=== PATIENT | male | born 1975 | race Caucasian/White ===

== ENCOUNTER 2017-08-13 21:37 | Emergency (ER) | payer OTHER, SELFPAY ==
--- NOTE | 2017-08-13 21:42 | ED.UPPEXIN ---
HPI - Extremity Injury (Upper) <SIDDHARTH Stahl - Last Filed: 08/13/17 22:15> General Chief Complaint: Wound/Laceration Stated Complaint: LEFT THUMB CUT Time Seen by Provider: 08/13/17 21:41 History of Present Illness HPI narrative: 42-year-old healthy male here for complaint of laceration to his left thumb. He was using a utility knife earlier this evening because only in [place] when he accidentally slipped hitting the dorsal aspect of the left thumb over the MCP joint. He denies any other injuries. He states that his tetanus is up-to-date. No other concerns or complaints Related Data Previous Rx's Medication Instructions Recorded diazepam [Valium] 5 mg PO Q12HP PRN #10 tab 07/23/16 hydrocodone-acetaminophen [Evans] 1 tab PO Q6HP PRN #10 tab 07/23/16 Allergies Allergy/AdvReac Type Severity Reaction Status Date / Time No Known Drug Allergies Allergy Verified 08/13/17 21:52 Review of Systems <SIDDHARTH Stahl - Last Filed: 08/13/17 22:15> Constitutional Denies chills, Denies fever(s), Denies lethargy and Denies weakness Eyes Denies change in vision, Denies eye discharge, Denies irritation and Denies loss of vision ENT Ears, Nose, Mouth, and Throat: Denies change in voice, Denies neck pain and Denies sore throat Cardiovascular Denies chest pain, Denies irregular heart rhythm, Denies lightheadedness, Denies palpitations, Denies dyspnea, Denies dyspnea on exertion and Denies orthopnea Respiratory Denies cough, Denies dyspnea, Denies dyspnea on exertion and Denies wheezing Gastrointestinal Gastrointestinal: Denies abdominal pain, Denies change in bowel habits, Denies diarrhea, Denies nausea and Denies vomiting Genitourinary Denies hematuria, Denies flank pain, Denies urinary incontinence and Denies urinary urgency Musculoskeletal Denies neck pain Comments: Laceration left thumb Integumentary/Breasts Denies pruritus, Denies erythema, Denies rash and Denies wounds Neurologic Denies loss of vision and Denies weakness Endocrine Denies palpitations Hematologic/Lymphatic Denies easy bruising Allergic/Immunologic Denies wheezing Exam <SIDDHARTH Stahl Last Filed: 06/14/18 22:15> Initial Vital Signs Initial Vital Signs: Vital Signs Temperature 98.6 F 08/13/17 21:46 Pulse Rate 84 08/13/17 21:46 Respiratory Rate 15 08/13/17 21:46 Blood Pressure 130/71 H 08/13/17 21:46 Pulse Oximetry 98 08/13/17 21:46 Const General: cooperative and well developed Nutritional Appearance: well nourished Orientation: alert, awake, oriented x3 and not confused [facility] Mouth: oral mucosae normal and moist mucous membranes Eyes Conjunctivae: conjunctivae normal Sclera: sclerae normal Pupils: PERRL EOM: EOM intact bilaterally Neck Neck: normal visual inspection, trachea midline, No lymphadenopathy, No midline deformity and No JVD Lymphatic: No lymphedema Chest Chest: normal inspection of the chest Resp Effort & Inspection: normal respiratory effort, able to speak in complete sentences, no respiratory distress and no use of accessory muscles Auscultation: clear to auscultation bilaterally, no rales, no rhonchi and no wheezes Cardio Rate: regular rate Rhythm: regular rhythm Heart Sounds: no click, no gallops, no murmurs and no rubs Skin General: no rashes or lesions noted, No jaundice and No petechiae Extrem Other: 1 cm laceration to the dorsal aspect of the left thumb over the MCP joint. Distal sensation is intact. Full range of motion. Distal cap refill less than 2 sec. <Markus Montejo MD - Last Filed: 08/14/17 02:24> Initial Vital Signs Initial Vital Signs: Vital Signs Temperature 98.6 F 08/13/17 21:46 Pulse Rate 84 08/13/17 21:46 Respiratory Rate 15 08/13/17 21:46 Blood Pressure 130/71 H 08/13/17 21:46 Pulse Oximetry 98 08/13/17 21:46 Procedures <SIDDHARTH Stahl - Last Filed: 08/13/17 22:15> Laceration Repair Laceration 1: Site: other (thumb) Side (If applicable): left Size (cm): 1 Description: linear Depth: simple, single layer Local Anesthetic: lidocaine 1% Amount of anesthesia used (mL): 1.5 Pre-repair: wound explored Skin layer closed with: nylon Size (cm): 5-0 Number of sutures: 2 Technique: simple, interrupted Course <SIDDHARTH Stahl - Last Filed: 08/13/17 22:15> Vital Signs - 8 hr 08/13/17 21:46 Temperature 98.6 F Pulse Rate 84 Respiratory Rate 15 Blood Pressure 130/71 H Pulse Oximetry 98 <Markus Montejo MD - Last Filed: 08/14/17 02:24> Vital Signs - 8 hr 08/13/17 21:46 Temperature 98.6 F Pulse Rate 84 Respiratory Rate 15 Blood Pressure 130/71 H Pulse Oximetry 98 MDM - Extremity Injury (Upper) <SIDDHARTH Stahl - Last Filed: 08/13/17 22:15> MDM Narrative Medical decision making narrative: Laceration to left thumb was closed with 2 sutures. Sutures to be removed in 7-10 days. Wound dressed with bacitracin and a dressing. Keep wound dressing on clean and dry for 24-36 hr. After this timeframe a shower briefly. Dry wound and redressed with bacitracin and a dressing. Dress wound daily with bacitracin and a dressing. [id number] Tylenol or Motrin as needed for any discomfort. For any worsening symptoms return to the emergency room. Discharge Plan Departure Patient Disposition: Home, Self-Care Clinical Impression: Laceration of left thumb Discharge Date/Time: 08/13/17 22:14 Interventions: ED Discharge Assessment Last Done: 08/13/17 22:12 Instructions: DI for Laceration Repair Activity Restrictions/Additional Instructions: Laceration to left thumb was closed with 2 sutures. Sutures to be removed in 7-10 days. Wound dressed with bacitracin and a dressing. Keep wound dressing on clean and dry for 24-36 hr. After this timeframe a shower briefly. Dry wound and redressed with bacitracin and a dressing. Dress wound daily with bacitracin and a dressing. [id number] Tylenol or Motrin as needed for any discomfort. For any worsening symptoms return to the emergency room. Prescriptions: No Action hydrocodone-acetaminophen [Evans] 5 MG/325 MG tablet 1 tab PO Q6HP PRNQty: 10 RF: 0 diazepam [Valium] 5 MG tablet 5 mg PO Q12HP PRNQty: 10 RF: 0 Referrals: [facility] [Provider Group] <Markus Montejo MD - Last Filed: 08/14/17 02:24> Cosign ED Attending Cosdimitriature Attestation: I was immediately available in the department for consultation. Documentation has been reviewed. I agree with assessment and plan.
[2017-08-13 21:46] VITALS: BP 130/71; PULSE 84; RESP 15; TEMP 37; O2SAT 98; BMI 29.9
--- NOTE | 2017-08-13 22:07 | ED_ITS ---
HPI - Extremity Injury (Upper) <SIDDHARTH Stahl - Last Filed: 08/13/17 22:15> General Chief Complaint: Wound/Laceration Stated Complaint: LEFT THUMB CUT Time Seen by Provider: 08/13/17 21:41 History of Present Illness HPI narrative: 42-year-old healthy male here for complaint of laceration to his left thumb. He was using a utility knife earlier this evening because only in [place] when he accidentally slipped hitting the dorsal aspect of the left thumb over the MCP joint. He denies any other injuries. He states that his tetanus is up-to-date. No other concerns or complaints Related Data Previous Rx's Medication Instructions Recorded diazepam [Valium] 5 mg PO Q12HP PRN #10 tab 07/23/16 hydrocodone-acetaminophen [Wheaton] 1 tab PO Q6HP PRN #10 tab 07/23/16 Allergies Allergy/AdvReac Type Severity Reaction Status Date / Time No Known Drug Allergies Allergy Verified 08/13/17 21:52 Review of Systems <SIDDHARTH Stahl - Last Filed: 08/13/17 22:15> Constitutional Denies chills, Denies fever(s), Denies lethargy and Denies weakness Eyes Denies change in vision, Denies eye discharge, Denies irritation and Denies loss of vision ENT Ears, Nose, Mouth, and Throat: Denies change in voice, Denies neck pain and Denies sore throat Cardiovascular Denies chest pain, Denies irregular heart rhythm, Denies lightheadedness, Denies palpitations, Denies dyspnea, Denies dyspnea on exertion and Denies orthopnea Respiratory Denies cough, Denies dyspnea, Denies dyspnea on exertion and Denies wheezing Gastrointestinal Gastrointestinal: Denies abdominal pain, Denies change in bowel habits, Denies diarrhea, Denies nausea and Denies vomiting Genitourinary Denies hematuria, Denies flank pain, Denies urinary incontinence and Denies urinary urgency Musculoskeletal Denies neck pain Comments: Laceration left thumb Integumentary/Breasts Denies pruritus, Denies erythema, Denies rash and Denies wounds Neurologic Denies loss of vision and Denies weakness Endocrine Denies palpitations Hematologic/Lymphatic Denies easy bruising Allergic/Immunologic Denies wheezing Exam <SIDDHARTH Stahl Last Filed: 06/14/18 22:15> Initial Vital Signs Initial Vital Signs: Vital Signs Temperature 98.6 F 08/13/17 21:46 Pulse Rate 84 08/13/17 21:46 Respiratory Rate 15 08/13/17 21:46 Blood Pressure 130/71 H 08/13/17 21:46 Pulse Oximetry 98 08/13/17 21:46 Const General: cooperative and well developed Nutritional Appearance: well nourished Orientation: alert, awake, oriented x3 and not confused [facility] Mouth: oral mucosae normal and moist mucous membranes Eyes Conjunctivae: conjunctivae normal Sclera: sclerae normal Pupils: PERRL EOM: EOM intact bilaterally Neck Neck: normal visual inspection, trachea midline, No lymphadenopathy, No midline deformity and No JVD Lymphatic: No lymphedema Chest Chest: normal inspection of the chest Resp Effort & Inspection: normal respiratory effort, able to speak in complete sentences, no respiratory distress and no use of accessory muscles Auscultation: clear to auscultation bilaterally, no rales, no rhonchi and no wheezes Cardio Rate: regular rate Rhythm: regular rhythm Heart Sounds: no click, no gallops, no murmurs and no rubs Skin General: no rashes or lesions noted, No jaundice and No petechiae Extrem Other: 1 cm laceration to the dorsal aspect of the left thumb over the MCP joint. Distal sensation is intact. Full range of motion. Distal cap refill less than 2 sec. <Markus Montejo MD - Last Filed: 08/14/17 02:24> Initial Vital Signs Initial Vital Signs: Vital Signs Temperature 98.6 F 08/13/17 21:46 Pulse Rate 84 08/13/17 21:46 Respiratory Rate 15 08/13/17 21:46 Blood Pressure 130/71 H 08/13/17 21:46 Pulse Oximetry 98 08/13/17 21:46 Procedures <SIDDHARTH Stahl - Last Filed: 08/13/17 22:15> Laceration Repair Laceration 1: Site: other (thumb) Side (If applicable): left Size (cm): 1 Description: linear Depth: simple, single layer Local Anesthetic: lidocaine 1% Amount of anesthesia used (mL): 1.5 Pre-repair: wound explored Skin layer closed with: nylon Size (cm): 5-0 Number of sutures: 2 Technique: simple, interrupted Course <SIDDHARTH Stahl - Last Filed: 08/13/17 22:15> Vital Signs - 8 hr 08/13/17 21:46 Temperature 98.6 F Pulse Rate 84 Respiratory Rate 15 Blood Pressure 130/71 H Pulse Oximetry 98 <Markus Montejo MD - Last Filed: 08/14/17 02:24> Vital Signs - 8 hr 08/13/17 21:46 Temperature 98.6 F Pulse Rate 84 Respiratory Rate 15 Blood Pressure 130/71 H Pulse Oximetry 98 MDM - Extremity Injury (Upper) <SIDDHARTH Stahl - Last Filed: 08/13/17 22:15> MDM Narrative Medical decision making narrative: Laceration to left thumb was closed with 2 sutures. Sutures to be removed in 7-10 days. Wound dressed with bacitracin and a dressing. Keep wound dressing on clean and dry for 24-36 hr. After this timeframe a shower briefly. Dry wound and redressed with bacitracin and a dressing. Dress wound daily with bacitracin and a dressing. [id number] Tylenol or Motrin as needed for any discomfort. For any worsening symptoms return to the emergency room. Discharge Plan Departure Patient Disposition: Home, Self-Care Clinical Impression: Laceration of left thumb Discharge Date/Time: 08/13/17 22:14 Interventions: ED Discharge Assessment Last Done: 08/13/17 22:12 Instructions: DI for Laceration Repair Activity Restrictions/Additional Instructions: Laceration to left thumb was closed with 2 sutures. Sutures to be removed in 7- 10 days. Wound dressed with bacitracin and a dressing. Keep wound dressing on clean and dry for 24-36 hr. After this timeframe a shower briefly. Dry wound and redressed with bacitracin and a dressing. Dress wound daily with bacitracin and a dressing. [id number] Tylenol or Motrin as needed for any discomfort. For any worsening symptoms return to the emergency room. Prescriptions: No Action hydrocodone-acetaminophen [Wheaton] 5 MG/325 MG tablet 1 tab PO Q6HP PRNQty: 10 RF: 0 diazepam [Valium] 5 MG tablet 5 mg PO Q12HP PRNQty: 10 RF: 0 Referrals: [facility] [Provider Group] <Markus Montejo MD - Last Filed: 08/14/17 02:24> Cosign ED Attending Cosdimitriature Attestation: I was immediately available in the department for consultation. Documentation has been reviewed. I agree with assessment and plan.
== END 2017-08-13 22:14 | disposition home or self-care (01) ==
PROVIDERS: Emergency Provider Nurse Practitioner Family
DX: S61.012A Laceration without foreign body of left thumb without damage to nail, initial encounter (principal); W26.0XXA Contact with knife, initial encounter
CPT/HCPCS: 12001; 99282; 99283

== ENCOUNTER → 2017-12-03 09:42 | Outpatient (CLI) | payer OTHER, SELFPAY ==
--- NOTE | 2017-12-03 | DI.RAD.S_ITS ---
PROCEDURE: XR KNEE RT 3V INDICATIONS: KNEE PAIN TECHNIQUE: 3 views of the knee were acquired. COMPARISON: None. FINDINGS: Bones: No fractures or dislocations. No suspicious bony lesions. No definite joint space narrowing. Anterior soft tissue swelling. Trace joint effusion is seen. There is a chronic-appearing fragment measuring 3 mm adjacent to the tibial tuberosity. IMPRESSION: No definite acute fracture. 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 Please correlate clinically. Trace joint effusion. Dictated by: Jeff King M.D. on 12/03/2017 at 11:46 Approved by: Jeff King M.D. on 12/03/2017 at 11:48
== END ==
PROVIDERS: Visit Provider Internal Medicine
DX: M25.561 Pain in right knee (principal); M79.89 Other specified soft tissue disorders
CPT/HCPCS: 73562

== ENCOUNTER → 2018-09-20 14:38 | Outpatient (CLI) | payer OTHER, SELFPAY ==
--- NOTE | 2018-09-20 | DI.MRI.S_ITS ---
PROCEDURE: MR KNEE RT WO CON INDICATIONS: Patellar tendinitis, right knee TECHNIQUE: Noncontrast sagittal PD fast spin echo and T2 fast spin echo with fat saturation, sagittal 3-D FLASH with fat saturation; coronal T1 spin echo and PD fast spin echo with fat saturation, and axial PD fast spin echo with fat saturation through the knee. COMPARISON: None. FINDINGS: Image quality: Excellent. Menisci: The medial and lateral menisci demonstrate normal morphology and internal signal. The meniscal root ligaments appear intact. Cruciate ligaments: The anterior and posterior cruciate ligaments appear intact. Medial structures: The medial collateral ligament appears intact. The posterior oblique ligament, semimembranosus tendon insertions, oblique popliteal ligament, and meniscocapsular junction appear intact. Visualized portions of the pes anserinus tendons appear normal. No abnormal bursal fluid. Lateral structures: The lateral collateral ligament, long and short heads of the biceps femoris tendon appear intact. The popliteus tendon appears normal; the popliteofibular ligament appears intact. The posterosuperior and anteroinferior popliteomeniscal fascicles appear intact. The arcuate and fabellofibular ligaments appear intact, on either side of the lateral inferior geniculate artery. Iliotibial band appears normal. Anterior structures: The quadriceps tendon appears intact. Markedly thickened patellar tendon with heterogeneous T2 hyperintense signal in distal patella tendon near its insertion on tibia tuberosity is seen consistent with tendinosis and moderate grade partial-thickness tear involving patella tendon. Patellar alignment is normal. No femoral trochlear dysplasia or ventral trochlear prominence. No edema in the infrapatellar fat pad. Bones and cartilage: No bone marrow contusions or fractures. The cartilage of the medial and lateral femorotibial compartments, appears normal in thickness. Chondromalacia involving apex and medial facet of patella cartilage is seen. Joint space: There is small to moderate amount of joint fluid, no gross loose body. No Manuel's cyst. Normal appearing synovial plicae are incidentally noted. IMPRESSION: 1. Tendinosis and low to moderate grade partial-thickness involving mid to distal patella tendon. No full-thickness patella tendon rupture. Distal quadriceps tendon is intact. 2. No evidence of focal meniscal tear. Cruciate ligaments are intact. 3. No marrow edema. No fracture or dislocation. Low-grade chondromalacia involving apex and medial facet of patella cartilage. Dictated by: Baldemar Kaplan M.D. on 09/20/2018 at 16:35 Approved by: Baldemar Kaplan M.D. on 09/20/2018 at 16:39
== END ==
PROVIDERS: Visit Provider Internal Medicine
DX: M76.51 Patellar tendinitis, right knee (principal); M22.41 Chondromalacia patellae, right knee
CPT/HCPCS: 73721

== ENCOUNTER → 2019-07-12 15:46 | Outpatient (CLI) | payer OTHER, SELFPAY ==
[2019-07-14 07:08] LABS: COVID19 Sendout Not Detected (Not Detected)
== END ==
PROVIDERS: Visit Provider Physician Assistant
DX: R53.83 Other fatigue (principal)
CPT/HCPCS: 87635

== ENCOUNTER → 2019-07-13 10:18 | Outpatient (CLI) | payer OTHER, SELFPAY ==
--- NOTE | 2019-07-13 | DI.US.S_ITS ---
PROCEDURE: US SCROTUM INDICATIONS: RIGHT TESTICULAR PAIN TECHNIQUE: Real-time scanning was performed of the scrotum and testicles, with image documentation. Color and pulse Doppler interrogation was performed of both testicles. COMPARISON: None. FINDINGS: Right: Testicle is normal in size at 2.8 x 3.2 x 4.9 cm, and homogenous in echotexture. Epididymis is normal in overall size and morphology. No hydrocele the there are mild right-sided varicoceles. Overlying scrotal skin is normal in thickness. Note is made of a small 3 x 5 x 6 mm cyst within the right testicle, subcapsular. Left: Testicle is normal in size at 2.6 x 3.3 x 4.5 cm, and homogeneous in echotexture. Epididymis is normal in overall size and morphology. No hydrocele and there are mild left-sided varicoceles. Overlying scrotal skin is normal in thickness. Doppler: Color and pulse Doppler demonstrate normal and symmetric arterial flow in both testicles. IMPRESSION: Incidental note is made of a small 3 x 6 x 5 mm cyst within the right testicle, and also of mild bilateral varicoceles. The area of maximal tenderness is centered over the right sided varicoceles, and therefore this is the likely cause for current symptomatology. No thrombosis within varicoceles is seen. Dictated by: Rogelio Gama M.D. on 07/13/2019 at 12:41 Approved by: Rogelio Gama M.D. on 07/13/2019 at 12:45
== END ==
PROVIDERS: PCP Internal Medicine; Referring Provider Internal Medicine; Visit Provider Internal Medicine
DX: N50.811 Right testicular pain (principal); N44.2 Benign cyst of testis; I86.1 Scrotal varices
CPT/HCPCS: 76870

== ENCOUNTER → 2019-11-26 13:57 | Outpatient (CLI) | payer OTHER, SELFPAY ==
--- NOTE | 2019-11-26 13:58 | DI.RAD.S_ITS ---
PROCEDURE: XR ELBOW LT MIN 3V INDICATIONS: L olecranon process trauma with pain TECHNIQUE: 3 views of the elbow were acquired. COMPARISON: None. FINDINGS: Bones: There is a fragmented enthesophyte seen along the posterior aspect of the olecranon. No additional focal bony abnormalities are seen. No suspicious lytic or blastic lesions are seen. Soft tissues: No significant elbow calcification is seen. There is focal calcification seen adjacent to the medial epicondyle. IMPRESSION: Fragmented enthesophyte seen along the posterior aspect of the olecranon, which is consistent with the given history. Likely prior medial epicondylitis. Dictated by: Ammon Freeman M.D. on 11/26/2019 at 14:05 Approved by: Ammon Freeman M.D. on 11/26/2019 at 14:07
== END ==
PROVIDERS: PCP Internal Medicine; Referring Provider Nurse Practitioner; Visit Provider Nurse Practitioner
DX: S59.902A Unspecified injury of left elbow, initial encounter; X58.XXXA Exposure to other specified factors, initial encounter
CPT/HCPCS: 73080

== ENCOUNTER → 2021-02-19 15:45 | Outpatient (CLI) | payer OTHER, SELFPAY ==
--- NOTE | 2021-02-19 15:47 | DI.RAD.S_ITS ---
PROCEDURE: XR HAND LT MIN 3V INDICATIONS: Hand injury TECHNIQUE: 3 views of the hand(s) acquired. COMPARISON: None. FINDINGS: Bones: No fractures or dislocations. Small erosion versus remote traumatic injury involving the radial aspect of the 5th proximal phalanx base. Carpal bones are normally aligned. No suspicious bony lesions. Soft tissues: No suspicious soft tissue calcifications. IMPRESSION: No acute osseous abnormality. Dictated by: Jan Johnson M.D. on 02/19/2021 at 16:26 Approved by: Jan Johnson M.D. on 02/19/2021 at 16:27
== END ==
PROVIDERS: PCP Student in an Organized Health Care Education/Training Program; Referring Provider Student in an Organized Health Care Education/Training Program; Visit Provider Student in an Organized Health Care Education/Training Program
DX: S69.92XA Unspecified injury of left wrist, hand and finger(s), initial encounter (principal); X58.XXXA Exposure to other specified factors, initial encounter
CPT/HCPCS: 73130

== ENCOUNTER 2021-07-24 11:15 | Outpatient (RCR) | payer OTHER, SELFPAY ==
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
--- NOTE | 2021-04-25 17:49 | PT.OIE ---
Current Diagnoses Abnormal posture (04/25/21) Unspecified injury of right shoulder and upper arm, initial encounter (04/25/21) Past Medical History (Last Updated 12/07/19 @ 21:41 by Yoko Driver) History of shoulder surgery (~2015) Wears contact lenses Past Surgical History (Last Updated 12/07/19 @ 21:41 by Yoko Driver) Anesthesia History of shoulder surgery (~2015) Visit Care Team Role Provider Type Ronak Nelson MD Attending Provider Physician Family Provider Primary Care Provider Referring Provider Specialty: Internal Medicine Address: [address] [place] [address], [address], [facility] Email: [email or web address] Physical Therapy Initial Evaluation PT-OP-A Visit Information Start: 04/18/21 17:24 Freq: Status: Active Protocol: Document 04/25/21 09:45 AW (Rec: 04/25/21 08:34 AW [id number]) Out-Patient Physical Therapy Visit Information Visit Information Visit Type Initial Evaluation Visit Start Time 09:00 Visit Stop Time 09:45 Total Visit Minutes 45 Visit Number 1 Evaluation Information Evaluation Date 04/25/21 PT-OP-B Current Condition Start: 04/18/21 17:24 Freq: Status: Active Protocol: Document 04/25/21 09:45 AW (Rec: 04/18/21 17:27 AW [id number]) Current Condition History of Current Condition Onset Date 2 years Current Complaints right shoulder pain History of Current Condition Two years ago, Andria shoveled a 6 foot tall pile of dirt and began to experience right biceps and shoulder pain afterward. He had PT which was helpful but pain has returned . He has pain when he turns on his right side during sleep and he has to sleep with arms <90 degrees elevation or he gets tingling in arm and 3rd/ 4th digits. Pain is mostly in the posterior shoulder and travels toward the front of the arm and outside of the elbow. Heavy workouts (squats, pushups, pullups) and sleeping right side makes it worse. 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 He has history of left shoulder impingement which was treated surgically with distal clavicle resection (Cristofer procedure) to good effect. Prior Treatments and Tests PT for shoulder a few years ago which was helpful Future Testing and Treatments Planned Sleep study Treatment Goals Patient/Caregiver Goals Improve left shoulder function to be able to perform job duties and home remodel projects without pain. Personal Factors Other Personal Factors That May Effect Pt tends to work through pain Therapy/Recovery in workouts or projects and will need extensive counseling on activity modification. PT-OP-C Subjective Start: 04/18/21 17:24 Freq: Status: Active Protocol: Document 04/25/21 09:45 AW (Rec: 04/25/21 12:12 AW [id number]) Patient Questionnaires Quick Dash- Upper Extremity Quick Dash UE Score 14 Quick Dash UE Impairment 1 to 19% Impaired (Score 1-19) OP-PT Pain Assessment Pain Assessment Grid Paper Pain Assessment Grid Completed Yes: Scanned to EMR PT-OP-F Manual Assessment Start: 04/18/21:24 Freq: Status: Active Protocol: Document 04/25/21 09:45 AW (Rec: 04/25/21 12:12 AW [id number]) Manual Assessments Soft Tissue Assessment Soft Tissue Mobility Assessment Moderate tone bilateral upper traps. Tender to palpation in supraspinatus and long head biceps. Joint Mobility Assessment Joint Mobility Assessment Decreased and painful posterior and inferior glides at left shoulder. No AC joint tenderness or change in pain symptoms with gapping PT-OP-H Neuro Start: 04/18/21 17:24 Freq: Status: Active Protocol: Document 04/25/21 09:45 AW (Rec: 04/25/21 12:12 AW [id number]) Sensation Evaluation Gross Sensation Gross Sensation WNL Deep Tendon Reflex & Clonus Assessment Deep Tendon Reflex Bilateral Bicep Deep Tendon Reflex 2+ Normal PT-OP-J Posture/Palpation/Skin Start: 04/18/21 17:24 Freq: Status: Active Protocol: Document 04/25/21 09:45 AW (Rec: 04/25/21 12:12 AW [id number]) Posture Evaluation Comments Posture Comments Mildly forward head, humeral head sits anteriorly bilaterally, shoulders slope downward. Scapulae >4 finger widths from spinous processes with mild winging bilaterally (right more affected than left ). PT-OP-K Range of Motion Start: 04/18/21 17:24 Freq: Status: Active Protocol: Document 04/25/21 09:45 AW (Rec: 04/25/21 12:52 AW [id number]) Cervical Spine Range of Motion Cervical Spine Active Degrees Testing Position Sitting Flexion 60 Extension 60 Rotation Left 63 Rotation Right 65 Lateral Flexion Left 35 Lateral Flexion Right 35 Shoulder Goniometric Range of Motion Shoulder Right Shoulder ROM WFL Yes Testing Position Sitting External Rotation at 0 degrees Abduction 60 Internal Rotation Behind Back (text) T10 Left Shoulder ROM WFL Yes Testing Position Sitting External Rotation at 0 degrees Abduction 75 Internal Rotation Behind Back (text) T6 Comments Flexion and abduction WNL and without pain Shoulder ROM Limitations Shoulder ROM Limitations Pain Comments Flexion and abduction minimally reduced compared with left side and reproduce pain. Elbow/Forearm Range of Motion Elbow/Forearm Right Elbow/Forearm ROM WFL Yes ROM Testing Position Supine Comments ROM WNL but extension and supination reproduce pain. PT-OP-L Special Tests Start: 04/18/21 17:24 Freq: Status: Active Protocol: Document 04/25/21 09:45 AW (Rec: 04/25/21 12:52 AW [id number]) Special Tests Cervical Spine Special Tests Traction Test Results negative bilaterally Shoulder Special Tests IR MMT Test Results reproduces pain on the right Painful Arc Test Results positive for pain at 130 degrees on the right Drop Arm Rotator Cuff Test Results negative bilaterally Comments Pt able to maintain arm position on the right without compensations but does report increased pain Jeffrey Basim Impingement Test Results positive R; negative L PT-OP-M Strength Start: 04/18/21 17:24 Freq: Status: Active Protocol: Document 04/25/21 09:45 AW (Rec: 04/25/21 12:52 AW [id number]) Shoulder Strength Shoulder Manual Muscle Testing Right Flexion 4+ Good+ Extension 5 Normal Abduction (C5) 4+ Good+ External Rotation 5 Normal Internal Rotation 4+ Good+ Horizontal Abduction 5 Normal Horizontal Adduction 4+ Good+ Comments Left shoulder grossly 5/5 without pain. Elbow/Forearm Strength Elbow and Forearm Manual Muscle Testing Right Flexion (C6) 5 Normal Extension (C7) 5 Normal Comments 5/5 but painful in resisted flexion PT-OP-Q Treatments Start: 04/18/21 17:24 Freq: Status: Active Protocol: Document 04/25/21 09:45 AW (Rec: 04/25/21 17:48 AW [id number]) Therapeutic Exercises Sitting Exercises cervical retraction Sitting Exercise Name cervical retraction Resistance AROM Reps/Minutes 5SH x 10 Comments HEP scapular retraction Sitting Exercise Name scapular retraction Side bilateral Resistance AROM Reps/Minutes 5 SH x 15 Comments HEP Standing Exercises GH extension Standing Exercise Name GH extension Resistance TB3 Comments focus eccentric phase; cued soft upper traps; HEP GH row Standing Exercise Name GH row Resistance TB3 Comments focus eccentric phase; cued soft upper traps; HEP Self-Care/Home Management Treatment Education Patient Education Joint Protection,Posture Other Education Educated pt extensively on need for activity modification in beginning phases of rehab. PT-OP-T Assessment and Plan Start: 04/18/21 17:24 Freq: Status: Active Protocol: Document 04/25/21 09:45 AW (Rec: 04/25/21 17:48 AW [id number]) Physical Therapy Assessment Rehab Potential Rehabilitation Potential Good Evaluation Complexity Number of Personal Factors/Comorbidities 1-2 Number of Body Systems Impaired 1-2 Clinical Presentation at Evaluation Stable Impairments Impairments Functional Activities,Pain, Posture,ROM,Soft Tissue Mobility,Strength Goals Three Impairment ROM Fci Goal (LTG) Pt will improve internal rotation ROM to equal that of left arm to reduce pain with dressing tasks and other self- care tasks. LTG Duration 8 weeks - 06/20/21 Two Impairment pain Short Term Goal (STG) Pt will lift the weight of his arm in abduction without increase in pain. STG Duration 4 weeks - 05/23/21 Skid Strapper Goal (LTG) Pt will bear weight on arms in quadruped without increase in pain to promote return to regular workouts and home remodeling projects LTG Duration 8 weeks - 06/20/21 One Impairment HEP Short Term Goal (STG) Pt will be instructed in progressive HEP to improve ROM , strength, and stability of left shoulder. STG Duration 4 weeks - 05/23/21 Fci Goal (LTG) Pt will be independent with HEP to improve ROM, strength, and stability of left shoulder . LTG Duration 8 weeks - 06/20/21 Assessment Summary Assessment Calos presents to outpatient physical therapy with complaints of chronic right shoulder pain following heavy use two years ago. He had PT at that time and improved but his pain has returned. Evaluation is consistent with impingement syndrome. Habitual postures likely predisposed him to injury and are also implicated in perpetuating his symptoms. 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 Physical Therapy Plan Frequency and Duration Frequency of Treatment 1-2x/week Duration of Treatment 8 weeks Plan of Care Start Date 04/25/21 Plan of Care End Date 06/20/21 Therapeutic Interventions Therapeutic Interventions Home Exercise Program,Joint Mobilizations,Manual Therapy, Neuromuscular Re-education, Taping,Therapeutic Activities, Therapeutic Exercises Modalities Cold Pack/Ice Massage,Electric Stimulation,Hot Packs Next Visit Focus/Plan Next Note Type Treatment Note Next Visit Plan assess response to initial HEP ; STM RTC, biceps; GH joint mobs; postural training; consider SL abduction, supine pec stretch, serratus punch
--- NOTE | 2021-04-25 17:49 | PT.OPPOC ---
Physical, Occupational & Speech Therapy At [facility] Current Diagnoses Abnormal posture (04/25/21) Unspecified injury of right shoulder and upper arm, initial encounter (04/25/21) Visit Care Team Role Provider Type Ronak Nelson MD Attending Provider Physician Family Provider Primary Care Provider Referring Provider Specialty: Internal Medicine Address: [address] [place] [address], [address], [facility] Email: [email or web address] Plan Of Care PT-OP-T Assessment and Plan Start: 04/18/21 17:24 Freq: Status: Active Protocol: Document 04/25/21 09:45 AW (Rec: 04/25/21 17:48 AW [id number]) Physical Therapy Assessment Rehab Potential Rehabilitation Potential Good Evaluation Complexity Number of Personal Factors/Comorbidities 1-2 Number of Body Systems Impaired 1-2 Clinical Presentation at Evaluation Stable Impairments Impairments Functional Activities,Pain, Posture,ROM,Soft Tissue Mobility,Strength Goals Three Impairment ROM Tech Writer Goal (LTG) Pt will improve internal rotation ROM to equal that of left arm to reduce pain with dressing tasks and other self- care tasks. LTG Duration 8 weeks - 06/20/21 Two Impairment pain Short Term Goal (STG) Pt will lift the weight of his arm in abduction without increase in pain. STG Duration 4 weeks - 05/23/21 Tech Writer Goal (LTG) Pt will bear weight on arms in quadruped without increase in pain to promote return to regular workouts and home remodeling projects LTG Duration 8 weeks - 06/20/21 One Impairment HEP Short Term Goal (STG) Pt will be instructed in progressive HEP to improve ROM , strength, and stability of left shoulder. STG Duration 4 weeks - 05/23/21 Tech Writer Goal (LTG) Pt will be independent with HEP to improve ROM, strength, and stability of left shoulder . LTG Duration 8 weeks - 06/20/21 Assessment Summary Assessment Calos presents to outpatient physical therapy with complaints of chronic right shoulder pain following heavy use two years ago. He had PT at that time and improved but his pain has returned. Evaluation is consistent with impingement syndrome. Habitual postures likely predisposed him to injury and are also implicated in perpetuating his symptoms. 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 Physical Therapy Plan Frequency and Duration Frequency of Treatment 1-2x/week Duration of Treatment 8 weeks Plan of Care Start Date 04/25/21 Plan of Care End Date 06/20/21 Therapeutic Interventions Therapeutic Interventions Home Exercise Program,Joint Mobilizations,Manual Therapy, Neuromuscular Re-education, Taping,Therapeutic Activities, Therapeutic Exercises Modalities Cold Pack/Ice Massage,Electric Stimulation,Hot Packs Next Visit Focus/Plan Next Note Type Treatment Note Next Visit Plan assess response to initial HEP ; STM RTC, biceps; GH joint mobs; postural training; consider SL abduction, supine pec stretch, serratus punch Plan of Care Dates Plan of Care Start Date 04/25/21 Plan of Care End Date 06/20/21 Electronically Signed by: Jazmyne Reed PT 04/25/21 [id number] Please Sign and Return: I have reviewed this Plan of Care and certify that the skilled therapy services above are required to meet the patient?s needs. Physician Signature Date Printed Name and Credentials Clinical Instructor Signature Printed Name and Credentials
--- NOTE | 2021-05-01 12:17 | PT.OTN ---
Current Diagnoses Abnormal posture (05/01/21) Unspecified injury of right shoulder and upper arm, initial encounter (05/01/21) Physical Therapy Treatment Note PT-OP-A Visit Information Start: 04/18/21 17:24 Freq: Status: Active Protocol: Document 05/01/21 11:20 AW (Rec: 05/01/21 12:17 AW [id number]) Out-Patient Physical Therapy Visit Information Visit Information Visit Type Treatment Note Visit Start Time 11:20 Visit Stop Time 12:00 Total Visit Minutes 40 Visit Number 2 Evaluation Information Evaluation Date 04/25/21 PT-OP-B Current Condition Start: 04/18/21 17:24 Freq: Status: Active Protocol: Document 04/25/21 09:45 AW (Rec: 04/18/21 17:27 AW [id number]) Current Condition History of Current Condition Onset Date 2 years Current Complaints right shoulder pain History of Current Condition Two years ago, Andria shoveled a 6 foot tall pile of dirt and began to experience right biceps and shoulder pain afterward. He had PT which was helpful but pain has returned . He has pain when he turns on his right side during sleep and he has to sleep with arms <90 degrees elevation or he gets tingling in arm and 3rd/ 4th digits. Pain is mostly in the posterior shoulder and travels toward the front of the arm and outside of the elbow. Heavy workouts (squats, pushups, pullups) and sleeping right side makes it worse. 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 He has history of left shoulder impingement which was treated surgically with distal clavicle resection (Cristofer procedure) to good effect. Prior Treatments and Tests PT for shoulder a few years ago which was helpful Future Testing and Treatments Planned Sleep study Treatment Goals Patient/Caregiver Goals Improve left shoulder function to be able to perform job duties and home remodel projects without pain. Personal Factors Other Personal Factors That May Effect Pt tends to work through pain Therapy/Recovery in workouts or projects and will need extensive counseling on activity modification. PT-OP-C Subjective Start: 04/18/21 17:24 Freq: Status: Active Protocol: Document 05/01/21 11:20 AW (Rec: 05/01/21 12:17 AW [id number]) OP-PT Subjective Patient Comments Patient Comments Exercises have been ok but the neck one hurts a little. PT-OP-F Manual Assessment Start: 04/18/21 17:24 Freq: Status: Active Protocol: Document 04/25/21 09:45 AW (Rec: 04/25/21 12:12 AW [id number]) Manual Assessments Soft Tissue Assessment Soft Tissue Mobility Assessment Moderate tone bilateral upper traps. Tender to palpation in supraspinatus and long head biceps. Joint Mobility Assessment Joint Mobility Assessment Decreased and painful posterior and inferior glides at left shoulder. No AC joint tenderness or change in pain symptoms with gapping PT-OP-H Neuro Start: 04/18/21 17:24 Freq: Status: Active Protocol: Document 04/25/21 09:45 AW (Rec: 04/25/21 12:12 AW [id number]) Sensation Evaluation Gross Sensation Gross Sensation WNL Deep Tendon Reflex & Clonus Assessment Deep Tendon Reflex Bilateral Bicep Deep Tendon Reflex 2+ Normal PT-OP-J Posture/Palpation/Skin Start: 04/18/21 17:24 Freq: Status: Active Protocol: Document 04/25/21 09:45 AW (Rec: 04/25/21 12:12 AW [id number]) Posture Evaluation Comments Posture Comments Mildly forward head, humeral head sits anteriorly bilaterally, shoulders slope downward. Scapulae >4 finger widths from spinous processes with mild winging bilaterally (right more affected than left ). PT-OP-K Range of Motion Start: 04/18/21 17:24 Freq: Status: Active Protocol: Document 04/25/21 09:45 AW (Rec: 04/25/21 12:52 AW [id number]) Cervical Spine Range of Motion Cervical Spine Active Degrees Testing Position Sitting Flexion 60 Extension 60 Rotation Left 63 Rotation Right 65 Lateral Flexion Left 35 Lateral Flexion Right 35 Shoulder Goniometric Range of Motion Shoulder Right Shoulder ROM WFL Yes Testing Position Sitting External Rotation at 0 degrees Abduction 60 Internal Rotation Behind Back (text) T10 Left Shoulder ROM WFL Yes Testing Position Sitting External Rotation at 0 degrees Abduction 75 Internal Rotation Behind Back (text) T6 Comments Flexion and abduction WNL and without pain Shoulder ROM Limitations Shoulder ROM Limitations Pain Comments Flexion and abduction minimally reduced compared with left side and reproduce pain. Elbow/Forearm Range of Motion Elbow/Forearm Right Elbow/Forearm ROM WFL Yes ROM Testing Position Supine Comments ROM WNL but extension and supination reproduce pain. PT-OP-L Special Tests Start: 04/18/21 17:24 Freq: Status: Active Protocol: Document 04/25/21 09:45 AW (Rec: 04/25/21 12:52 AW [id number]) Special Tests Cervical Spine Special Tests Traction Test Results negative bilaterally Shoulder Special Tests IR MMT Test Results reproduces pain on the right Painful Arc Test Results positive for pain at 130 degrees on the right Drop Arm Rotator Cuff Test Results negative bilaterally Comments Pt able to maintain arm position on the right without compensations but does report increased pain Jeffrey Basim Impingement Test Results positive R; negative L PT-OP-M Strength Start: 04/18/21 17:24 Freq: Status: Active Protocol: Document 04/25/21 09:45 AW (Rec: 04/25/21 12:52 AW [id number]) Shoulder Strength Shoulder Manual Muscle Testing Right Flexion 4+ Good+ Extension 5 Normal Abduction (C5) 4+ Good+ External Rotation 5 Normal Internal Rotation 4+ Good+ Horizontal Abduction 5 Normal Horizontal Adduction 4+ Good+ Comments Left shoulder grossly 5/5 without pain. Elbow/Forearm Strength Elbow and Forearm Manual Muscle Testing Right Flexion (C6) 5 Normal Extension (C7) 5 Normal Comments 5/5 but painful in resisted flexion PT-OP-Q Treatments Start: 04/18/21 17:24 Freq: Status: Active Protocol: Document 05/01/21 11:20 AW (Rec: 05/01/21 12:17 AW [id number]) Therapeutic Exercises Supine Exercises serratus punch Supine Exercise Name serratus punch Side bilateral Resistance 3# db Reps/Minutes 15 x 2 Comments HEP pec stretch Supine Exercise Name pec stretch Side bilateral Comments <90 degrees elevation; pain- free range; clinic only Prone Exercises GH extension Prone Exercise Name GH extension Side bilateral Reps/Minutes 2x12 Comments palms up Sidelying Exercises GH abduction Sidelying Exercise Name GH abduction Side right Resistance AROM Equipment Used to 90 deg only Reps/Minutes 12 x 2 Comments HEP GH ER Sidelying Exercise Name GH ER Side right Resistance AROM Equipment Used to neutral only Reps/Minutes 15 x 2 Comments HEP Sitting Exercises cervical retraction Sitting Exercise Name cervical retraction Resistance AROM Reps/Minutes 5SH x 10 Comments HEP review; cued chin tuck, neck elongation Manual Therapy Treatment Soft Tissue Mobilization R rhomboids Body Location R rhomboids Mobilization Type Strumming,Sustained Pressure, Trigger Point Release Intensity/Depth Moderate Body Position Sidelying Comments Educated pt to use theracane at home for TPR R biceps, supraspinatus, infraspinatus Body Location R biceps, supraspinatus, infraspinatus Mobilization Type Strumming,Sustained Pressure Intensity/Depth Moderate Body Position Prone Joint Mobilizations scapulothoracic Joint scapulothoracic Direction inferior, medial Body Position Sidelying GH Joint GH Direction inferior, posterior Grade II Body Position Supine Comments MWM with long axis distraction , rotation, abduction Self-Care/Home Management Treatment Education Patient Education Home Exercise Program,Joint Protection,Posture Other Education Added to HEP today. See scanned copy. PT-OP-T Assessment and Plan Start: 04/18/21 17:24 Freq: Status: Active Protocol: Document 05/01/21 11:20 AW (Rec: 05/01/21 12:17 AW [id number]) Physical Therapy Assessment Goals Three Impairment ROM Manager Information Goal (LTG) Pt will improve internal rotation ROM to equal that of left arm to reduce pain with dressing tasks and other self- care tasks. LTG Duration 8 weeks - 06/20/21 Two Impairment pain Short Term Goal (STG) Pt will lift the weight of his arm in abduction without increase in pain. STG Duration 4 weeks - 05/23/21 Manager Information Goal (LTG) Pt will bear weight on arms in quadruped without increase in pain to promote return to regular workouts and home remodeling projects LTG Duration 8 weeks - 06/20/21 One Impairment HEP Short Term Goal (STG) Pt will be instructed in progressive HEP to improve ROM , strength, and stability of left shoulder. STG Duration 4 weeks - 05/23/21 Manager Information Goal (LTG) Pt will be independent with HEP to improve ROM, strength, and stability of left shoulder . LTG Duration 8 weeks - 06/20/21 Assessment Summary Assessment Andria tolerated STM for right rotator cuff and biceps. Progressed strengthening for periscapular muscles today and pt responded well, able to keep movement in pain free range. Physical Therapy Plan Frequency and Duration Frequency of Treatment 1-2x/week Duration of Treatment 8 weeks Plan of Care Start Date 04/25/21 Plan of Care End Date 06/20/21 Therapeutic Interventions Therapeutic Interventions Home Exercise Program,Joint Mobilizations,Manual Therapy, Neuromuscular Re-education, Taping,Therapeutic Activities, Therapeutic Exercises Modalities Cold Pack/Ice Massage,Electric Stimulation,Hot Packs Next Visit Focus/Plan Next Note Type Treatment Note Next Visit Plan review HEP; STM RTC, biceps; GH joint mobs; postural training; consider SL abduction, supine pec stretch, serratus punch
--- NOTE | 2021-05-10 10:49 | PT.OTN ---
Current Diagnoses Abnormal posture (05/10/21) Unspecified injury of right shoulder and upper arm, initial encounter (05/10/21) Physical Therapy Treatment Note PT-OP-A Visit Information Start: 04/18/21 17:24 Freq: Status: Active Protocol: Document 05/10/21 09:47 MA (Rec: 05/10/21 10:48 MA [id number]) Out-Patient Physical Therapy Visit Information Visit Information Visit Type Treatment Note Visit Start Time 09:45 Visit Stop Time 10:30 Total Visit Minutes 45 Visit Number 4 Number of RETAIL BANKER Visits 1 PT-OP-B Current Condition Start: 04/18/21 17:24 Freq: Status: Active Protocol: Document 04/25/21 09:45 AW (Rec: 04/18/21 17:27 AW [id number]) Current Condition History of Current Condition Onset Date 2 years Current Complaints right shoulder pain History of Current Condition Two years ago, Andria shoveled a 6 foot tall pile of dirt and began to experience right biceps and shoulder pain afterward. He had PT which was helpful but pain has returned . He has pain when he turns on his right side during sleep and he has to sleep with arms <90 degrees elevation or he gets tingling in arm and 3rd/ 4th digits. Pain is mostly in the posterior shoulder and travels toward the front of the arm and outside of the elbow. Heavy workouts (squats, pushups, pullups) and sleeping right side makes it worse. 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 He has history of left shoulder impingement which was treated surgically with distal clavicle resection (Cristofer procedure) to good effect. Prior Treatments and Tests PT for shoulder a few years ago which was helpful Future Testing and Treatments Planned Sleep study Treatment Goals Patient/Caregiver Goals Improve left shoulder function to be able to perform job duties and home remodel projects without pain. Personal Factors Other Personal Factors That May Effect Pt tends to work through pain Therapy/Recovery in workouts or projects and will need extensive counseling on activity modification. PT-OP-C Subjective Start: 04/18/21 17:24 Freq: Status: Active Protocol: Document 05/10/21 09:47 MA (Rec: 05/10/21 10:48 MA [id number]) OP-PT Subjective Patient Comments Patient Comments Pt's neck is slightly improving since Thursday. Shoulder is still sore. PT-OP-F Manual Assessment Start: 04/18/21 17:24 Freq: Status: Active Protocol: Document 04/25/21 09:45 AW (Rec: 04/25/21 12:12 AW [id number]) Manual Assessments Soft Tissue Assessment Soft Tissue Mobility Assessment Moderate tone bilateral upper traps. Tender to palpation in supraspinatus and long head biceps. Joint Mobility Assessment Joint Mobility Assessment Decreased and painful posterior and inferior glides at left shoulder. No AC joint tenderness or change in pain symptoms with gapping PT-OP-H Neuro Start: 04/18/21 17:24 Freq: Status: Active Protocol: Document 04/25/21 09:45 AW (Rec: 04/25/21 12:12 AW [id number]) Sensation Evaluation Gross Sensation Gross Sensation WNL Deep Tendon Reflex & Clonus Assessment Deep Tendon Reflex Bilateral Bicep Deep Tendon Reflex 2+ Normal PT-OP-J Posture/Palpation/Skin Start: 04/18/21 17:24 Freq: Status: Active Protocol: Document 04/25/21 09:45 AW (Rec: 04/25/21 12:12 AW [id number]) Posture Evaluation Comments Posture Comments Mildly forward head, humeral head sits anteriorly bilaterally, shoulders slope downward. Scapulae >4 finger widths from spinous processes with mild winging bilaterally (right more affected than left ). PT-OP-K Range of Motion Start: 04/18/21 17:24 Freq: Status: Active Protocol: Document 04/25/21 09:45 AW (Rec: 04/25/21 12:52 AW [id number]) Cervical Spine Range of Motion Cervical Spine Active Degrees Testing Position Sitting Flexion 60 Extension 60 Rotation Left 63 Rotation Right 65 Lateral Flexion Left 35 Lateral Flexion Right 35 Shoulder Goniometric Range of Motion Shoulder Right Shoulder ROM WFL Yes Testing Position Sitting External Rotation at 0 degrees Abduction 60 Internal Rotation Behind Back (text) T10 Left Shoulder ROM WFL Yes Testing Position Sitting External Rotation at 0 degrees Abduction 75 Internal Rotation Behind Back (text) T6 Comments Flexion and abduction WNL and without pain Shoulder ROM Limitations Shoulder ROM Limitations Pain Comments Flexion and abduction minimally reduced compared with left side and reproduce pain. Elbow/Forearm Range of Motion Elbow/Forearm Right Elbow/Forearm ROM WFL Yes ROM Testing Position Supine Comments ROM WNL but extension and supination reproduce pain. PT-OP-L Special Tests Start: 04/18/21 17:24 Freq: Status: Active Protocol: Document 04/25/21 09:45 AW (Rec: 04/25/21 12:52 AW [id number]) Special Tests Cervical Spine Special Tests Traction Test Results negative bilaterally Shoulder Special Tests IR MMT Test Results reproduces pain on the right Painful Arc Test Results positive for pain at 130 degrees on the right Drop Arm Rotator Cuff Test Results negative bilaterally Comments Pt able to maintain arm position on the right without compensations but does report increased pain Jeffrey Basim Impingement Test Results positive R; negative L PT-OP-M Strength Start: 04/18/21 17:24 Freq: Status: Active Protocol: Document 04/25/21 09:45 AW (Rec: 04/25/21 12:52 AW [id number]) Shoulder Strength Shoulder Manual Muscle Testing Right Flexion 4+ Good+ Extension 5 Normal Abduction (C5) 4+ Good+ External Rotation 5 Normal Internal Rotation 4+ Good+ Horizontal Abduction 5 Normal Horizontal Adduction 4+ Good+ Comments Left shoulder grossly 5/5 without pain. Elbow/Forearm Strength Elbow and Forearm Manual Muscle Testing Right Flexion (C6) 5 Normal Extension (C7) 5 Normal Comments 5/5 but painful in resisted flexion PT-OP-Q Treatments Start: 04/18/21 17:24 Freq: Status: Active Protocol: Document 05/10/21 09:47 MA (Rec: 05/10/21 10:48 MA [id number]) Therapeutic Exercises Supine Exercises serratus punch Supine Exercise Name serratus punch Side bilateral Resistance 3# db Reps/Minutes 15 x 2 Comments HEP Sidelying Exercises Sleeper Stretch Sidelying Exercise Name IR sleeper stretch Side right Reps/Minutes 2x20 GH ER Sidelying Exercise Name GH ER Side right Resistance AROM Equipment Used past neutral today Reps/Minutes 15 x 2 Comments HEP Standing Exercises isometric shoulder Standing Exercise Name isometric shoulder; IR, ER, abd Side right Equipment Used pt denies pain Reps/Minutes 5SH x 10 Comments HEP pendulum Standing Exercise Name A/P; circles Side right Comments HEP Manual Therapy Treatment Soft Tissue Mobilization B upper traps, cervical paraspinals Body Location B upper traps, cervical paraspinals Mobilization Type Strumming,Sustained Pressure Intensity/Depth Moderate Body Position Supine Comments Contract/relax into rotation and lateral flexion with improved ROM post tx R rhomboids Body Location R rhomboids Mobilization Type Strumming,Sustained Pressure, Trigger Point Release Intensity/Depth Moderate Body Position Sidelying Comments Pt using lax ball and theracane at home R biceps, supraspinatus, infraspinatus Body Location R biceps, supraspinatus, infraspinatus Mobilization Type Strumming,Sustained Pressure Intensity/Depth Moderate Body Position Sidelying PT-OP-T Assessment and Plan Start: 04/18/21 17:24 Freq: Status: Active Protocol: Document 05/10/21 09:47 MA (Rec: 05/10/21 10:48 MA [id number]) Physical Therapy Assessment Goals Three Impairment ROM Rn Cardiac Rehab Goal (LTG) Pt will improve internal rotation ROM to equal that of left arm to reduce pain with dressing tasks and other self- care tasks. LTG Duration 8 weeks - 06/20/21 Two Impairment pain Short Term Goal (STG) Pt will lift the weight of his arm in abduction without increase in pain. STG Duration 4 weeks - 05/23/21 Detention Goal (LTG) Pt will bear weight on arms in quadruped without increase in pain to promote return to regular workouts and home remodeling projects LTG Duration 8 weeks - 06/20/21 One Impairment HEP Short Term Goal (STG) Pt will be instructed in progressive HEP to improve ROM , strength, and stability of left shoulder. STG Duration 4 weeks - 05/23/21 Detention Goal (LTG) Pt will be independent with HEP to improve ROM, strength, and stability of left shoulder . LTG Duration 8 weeks - 06/20/21 Assessment Summary Assessment Reviewed pt's latest HEP with pt requiring only minor cues during pendulum exercise to move body vs moving from shd. Continued with STM for R shd pain and improving R CS ROM. Pt was limited in L SB and L CS rotation but had improved ROM after STM. Physical Therapy Plan Frequency and Duration Frequency of Treatment 1-2x/week Duration of Treatment 8 weeks Plan of Care Start Date 04/25/21 Plan of Care End Date 06/20/21 Therapeutic Interventions Therapeutic Interventions Home Exercise Program,Joint Mobilizations,Manual Therapy, Neuromuscular Re-education, Taping,Therapeutic Activities, Therapeutic Exercises Modalities Cold Pack/Ice Massage,Electric Stimulation,Hot Packs Next Visit Focus/Plan Next Note Type Treatment Note Next Visit Plan assess response to HEP; add sleeper stretch to HEP and consider AAROM ER with cane
--- NOTE | 2021-05-17 09:56 | PT.OTN ---
Current Diagnoses Abnormal posture (05/17/21) Unspecified injury of right shoulder and upper arm, initial encounter (05/17/21) Physical Therapy Treatment Note PT-OP-A Visit Information Start: 04/18/21 17:24 Freq: Status: Active Protocol: Document 05/17/21 08:53 MA (Rec: 05/17/21 09:56 MA [id number]) Out-Patient Physical Therapy Visit Information Visit Information Visit Type Treatment Note Visit Start Time 09:00 Visit Stop Time 09:42 Total Visit Minutes 42 Visit Number 5 Number of ORDERLIES TEACHER Visits 2 PT-OP-B Current Condition Start: 04/18/21 17:24 Freq: Status: Active Protocol: Document 04/25/21 09:45 AW (Rec: 04/18/21 17:27 AW [id number]) Current Condition History of Current Condition Onset Date 2 years Current Complaints right shoulder pain History of Current Condition Two years ago, Andria shoveled a 6 foot tall pile of dirt and began to experience right biceps and shoulder pain afterward. He had PT which was helpful but pain has returned . He has pain when he turns on his right side during sleep and he has to sleep with arms <90 degrees elevation or he gets tingling in arm and 3rd/ 4th digits. Pain is mostly in the posterior shoulder and travels toward the front of the arm and outside of the elbow. Heavy workouts (squats, pushups, pullups) and sleeping right side makes it worse. 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 He has history of left shoulder impingement which was treated surgically with distal clavicle resection (Cristofer procedure) to good effect. Prior Treatments and Tests PT for shoulder a few years ago which was helpful Future Testing and Treatments Planned Sleep study Treatment Goals Patient/Caregiver Goals Improve left shoulder function to be able to perform job duties and home remodel projects without pain. Personal Factors Other Personal Factors That May Effect Pt tends to work through pain Therapy/Recovery in workouts or projects and will need extensive counseling on activity modification. PT-OP-C Subjective Start: 04/18/21 17:24 Freq: Status: Active Protocol: Document 05/17/21 08:53 MA (Rec: 05/17/21 09:56 MA [id number]) OP-PT Subjective Patient Comments Patient Comments Pt feels his shd and neck and feeling better. He has not had to do too much at work recently which might be helping. PT-OP-F Manual Assessment Start: 04/18/21 17:24 Freq: Status: Active Protocol: Document 04/25/21 09:45 AW (Rec: 04/25/21 12:12 AW [id number]) Manual Assessments Soft Tissue Assessment Soft Tissue Mobility Assessment Moderate tone bilateral upper traps. Tender to palpation in supraspinatus and long head biceps. Joint Mobility Assessment Joint Mobility Assessment Decreased and painful posterior and inferior glides at left shoulder. No AC joint tenderness or change in pain symptoms with gapping PT-OP-H Neuro Start: 04/18/21 17:24 Freq: Status: Active Protocol: Document 04/25/21 09:45 AW (Rec: 04/25/21 12:12 AW [id number]) Sensation Evaluation Gross Sensation Gross Sensation WNL Deep Tendon Reflex & Clonus Assessment Deep Tendon Reflex Bilateral Bicep Deep Tendon Reflex 2+ Normal PT-OP-J Posture/Palpation/Skin Start: 04/18/21 17:24 Freq: Status: Active Protocol: Document 04/25/21 09:45 AW (Rec: 04/25/21 12:12 AW [id number]) Posture Evaluation Comments Posture Comments Mildly forward head, humeral head sits anteriorly bilaterally, shoulders slope downward. Scapulae >4 finger widths from spinous processes with mild winging bilaterally (right more affected than left ). PT-OP-K Range of Motion Start: 04/18/21 17:24 Freq: Status: Active Protocol: Document 04/25/21 09:45 AW (Rec: 04/25/21 12:52 AW [id number]) Cervical Spine Range of Motion Cervical Spine Active Degrees Testing Position Sitting Flexion 60 Extension 60 Rotation Left 63 Rotation Right 65 Lateral Flexion Left 35 Lateral Flexion Right 35 Shoulder Goniometric Range of Motion Shoulder Right Shoulder ROM WFL Yes Testing Position Sitting External Rotation at 0 degrees Abduction 60 Internal Rotation Behind Back (text) T10 Left Shoulder ROM WFL Yes Testing Position Sitting External Rotation at 0 degrees Abduction 75 Internal Rotation Behind Back (text) T6 Comments Flexion and abduction WNL and without pain Shoulder ROM Limitations Shoulder ROM Limitations Pain Comments Flexion and abduction minimally reduced compared with left side and reproduce pain. Elbow/Forearm Range of Motion Elbow/Forearm Right Elbow/Forearm ROM WFL Yes ROM Testing Position Supine Comments ROM WNL but extension and supination reproduce pain. PT-OP-L Special Tests Start: 04/18/21 17:24 Freq: Status: Active Protocol: Document 04/25/21 09:45 AW (Rec: 04/25/21 12:52 AW [id number]) Special Tests Cervical Spine Special Tests Traction Test Results negative bilaterally Shoulder Special Tests IR MMT Test Results reproduces pain on the right Painful Arc Test Results positive for pain at 130 degrees on the right Drop Arm Rotator Cuff Test Results negative bilaterally Comments Pt able to maintain arm position on the right without compensations but does report increased pain Jeffrey Basim Impingement Test Results positive R; negative L PT-OP-M Strength Start: 04/18/21 17:24 Freq: Status: Active Protocol: Document 04/25/21 09:45 AW (Rec: 04/25/21 12:52 AW [id number]) Shoulder Strength Shoulder Manual Muscle Testing Right Flexion 4+ Good+ Extension 5 Normal Abduction (C5) 4+ Good+ External Rotation 5 Normal Internal Rotation 4+ Good+ Horizontal Abduction 5 Normal Horizontal Adduction 4+ Good+ Comments Left shoulder grossly 5/5 without pain. Elbow/Forearm Strength Elbow and Forearm Manual Muscle Testing Right Flexion (C6) 5 Normal Extension (C7) 5 Normal Comments 5/5 but painful in resisted flexion PT-OP-Q Treatments Start: 04/18/21 17:24 Freq: Status: Active Protocol: Document 05/17/21 08:53 MA (Rec: 05/17/21 09:56 MA [id number]) Therapeutic Exercises Supine Exercises pec stretch Supine Exercise Name pec stretch Side bilateral Comments <90 degrees elevation; pain- free range; clinic only Sidelying Exercises Sleeper Stretch Sidelying Exercise Name IR sleeper stretch Side right Reps/Minutes 2x20 Comments added to HEP GH ER Sidelying Exercise Name GH ER Side right Resistance AROM Equipment Used past neutral today Reps/Minutes 15 x 2 Comments reviewed Sitting Exercises UT stretch Sitting Exercise Name UT stretch Side bilateral Comments cued heavy arm, ear to ceiling ; HEP Standing Exercises Stretch Standing Exercise Name ER stretch in doorway Side right Reps/Minutes 2x30 Comments added to HEP Manual Therapy Treatment Soft Tissue Mobilization B upper traps, cervical paraspinals Body Location B upper traps, cervical paraspinals Mobilization Type Strumming,Sustained Pressure Intensity/Depth Moderate Body Position Supine Comments Contract/relax into rotation and lateral flexion with improved ROM post tx R rhomboids Body Location R rhomboids Mobilization Type Strumming,Sustained Pressure, Trigger Point Release Intensity/Depth Moderate Body Position Sidelying Comments Pt using lax ball and theracane at home R biceps, supraspinatus, infraspinatus Body Location R biceps, supraspinatus, infraspinatus Mobilization Type Strumming,Sustained Pressure Intensity/Depth Moderate Body Position Sidelying Manual Techniques CS traction Reps/Duration 2x1' Comments to improve CS rotation Self-Care/Home Management Treatment Education Patient Education Home Exercise Program Other Education Added to HEP: sleeper stretch (IR) and standing ER stretch. Instructed pt to move only in pain free ROM. PT-OP-T Assessment and Plan Start: 04/18/21 17:24 Freq: Status: Active Protocol: Document 05/17/21 08:53 MA (Rec: 05/17/21 09:56 MA [id number]) Physical Therapy Assessment Goals Three Impairment ROM Senior Living Goal (LTG) Pt will improve internal rotation ROM to equal that of left arm to reduce pain with dressing tasks and other self- care tasks. LTG Duration 8 weeks - 06/20/21 Two Impairment pain Short Term Goal (STG) Pt will lift the weight of his arm in abduction without increase in pain. STG Duration 4 weeks - 05/23/21 Perch Mender Goal (LTG) Pt will bear weight on arms in quadruped without increase in pain to promote return to regular workouts and home remodeling projects LTG Duration 8 weeks - 06/20/21 One Impairment HEP Short Term Goal (STG) Pt will be instructed in progressive HEP to improve ROM , strength, and stability of left shoulder. STG Duration 4 weeks - 05/23/21 Senior Living Goal (LTG) Pt will be independent with HEP to improve ROM, strength, and stability of left shoulder . LTG Duration 8 weeks - 06/20/21 Assessment Summary Assessment Calos feels most discomfort with active shd flexion, abdcution and ER. Added ER stretch in standing and IR stretch (sleeper stretch) in SL to HEP with instructions to stay in pain free range. Pt is limited today to 35 degrees L cervical SB but has no pain with SB after manual work. Limitation is likely due to tight R UT. Encouraged pt to continue with UT stretch and using raquet ball for self-STM to posterior R shd. Physical Therapy Plan Frequency and Duration Frequency of Treatment 1-2x/week Duration of Treatment 8 weeks Plan of Care Start Date 04/25/21 Plan of Care End Date 06/20/21 Therapeutic Interventions Therapeutic Interventions Home Exercise Program,Joint Mobilizations,Manual Therapy, Neuromuscular Re-education, Taping,Therapeutic Activities, Therapeutic Exercises Modalities Cold Pack/Ice Massage,Electric Stimulation,Hot Packs Next Visit Focus/Plan Next Note Type Treatment Note Next Visit Plan Assess response to new HEP: sleeper stretch and standing ER stretch in doorway.
--- NOTE | 2021-06-04 12:16 | PT.OTN ---
Current Diagnoses Abnormal posture (06/04/21) Unspecified injury of right shoulder and upper arm, initial encounter (06/04/21) Physical Therapy Treatment Note PT-OP-A Visit Information Start: 04/18/21 17:24 Freq: Status: Active Protocol: Document 06/04/21 10:52 AW (Rec: 06/04/21 12:14 AW [id number]) Out-Patient Physical Therapy Visit Information Visit Information Visit Type Treatment Note Visit Start Time 11:15 Visit Stop Time 12:00 Total Visit Minutes 45 Visit Number 6 Number of TAX TECHNICIAN Visits 0 PT-OP-B Current Condition Start: 04/18/21 17:24 Freq: Status: Active Protocol: Document 04/25/21 09:45 AW (Rec: 04/18/21 17:27 AW [id number]) Current Condition History of Current Condition Onset Date 2 years Current Complaints right shoulder pain History of Current Condition Two years ago, Andria shoveled a 6 foot tall pile of dirt and began to experience right biceps and shoulder pain afterward. He had PT which was helpful but pain has returned . He has pain when he turns on his right side during sleep and he has to sleep with arms <90 degrees elevation or he gets tingling in arm and 3rd/ 4th digits. Pain is mostly in the posterior shoulder and travels toward the front of the arm and outside of the elbow. Heavy workouts (squats, pushups, pullups) and sleeping right side makes it worse. 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 He has history of left shoulder impingement which was treated surgically with distal clavicle resection (Cristofer procedure) to good effect. Prior Treatments and Tests PT for shoulder a few years ago which was helpful Future Testing and Treatments Planned Sleep study Treatment Goals Patient/Caregiver Goals Improve left shoulder function to be able to perform job duties and home remodel projects without pain. Personal Factors Other Personal Factors That May Effect Pt tends to work through pain Therapy/Recovery in workouts or projects and will need extensive counseling on activity modification. PT-OP-C Subjective Start: 04/18/21 17:24 Freq: Status: Active Protocol: Document 06/04/21 10:52 AW (Rec: 06/04/21 12:14 AW [id number]) OP-PT Subjective Patient Comments Patient Comments Andria feels he is moving his shoulder better with less pain . Slow but steady improvement. Patient Reported Progress Improving PT-OP-F Manual Assessment Start: 04/18/21 17:24 Freq: Status: Active Protocol: Document 04/25/21 09:45 AW (Rec: 04/25/21 12:12 AW [id number]) Manual Assessments Soft Tissue Assessment Soft Tissue Mobility Assessment Moderate tone bilateral upper traps. Tender to palpation in supraspinatus and long head biceps. Joint Mobility Assessment Joint Mobility Assessment Decreased and painful posterior and inferior glides at left shoulder. No AC joint tenderness or change in pain symptoms with gapping PT-OP-H Neuro Start: 04/18/21 17:24 Freq: Status: Active Protocol: Document 04/25/21 09:45 AW (Rec: 04/25/21 12:12 AW [id number]) Sensation Evaluation Gross Sensation Gross Sensation WNL Deep Tendon Reflex & Clonus Assessment Deep Tendon Reflex Bilateral Bicep Deep Tendon Reflex 2+ Normal PT-OP-J Posture/Palpation/Skin Start: 04/18/21 17:24 Freq: Status: Active Protocol: Document 04/25/21 09:45 AW (Rec: 04/25/21 12:12 AW [id number]) Posture Evaluation Comments Posture Comments Mildly forward head, humeral head sits anteriorly bilaterally, shoulders slope downward. Scapulae >4 finger widths from spinous processes with mild winging bilaterally (right more affected than left ). PT-OP-K Range of Motion Start: 04/18/21 17:24 Freq: Status: Active Protocol: Document 04/25/21 09:45 AW (Rec: 04/25/21 12:52 AW [id number]) Cervical Spine Range of Motion Cervical Spine Active Degrees Testing Position Sitting Flexion 60 Extension 60 Rotation Left 63 Rotation Right 65 Lateral Flexion Left 35 Lateral Flexion Right 35 Shoulder Goniometric Range of Motion Shoulder Right Shoulder ROM WFL Yes Testing Position Sitting External Rotation at 0 degrees Abduction 60 Internal Rotation Behind Back (text) T10 Left Shoulder ROM WFL Yes Testing Position Sitting External Rotation at 0 degrees Abduction 75 Internal Rotation Behind Back (text) T6 Comments Flexion and abduction WNL and without pain Shoulder ROM Limitations Shoulder ROM Limitations Pain Comments Flexion and abduction minimally reduced compared with left side and reproduce pain. Elbow/Forearm Range of Motion Elbow/Forearm Right Elbow/Forearm ROM WFL Yes ROM Testing Position Supine Comments ROM WNL but extension and supination reproduce pain. PT-OP-L Special Tests Start: 04/18/21 17:24 Freq: Status: Active Protocol: Document 04/25/21 09:45 AW (Rec: 04/25/21 12:52 AW [id number]) Special Tests Cervical Spine Special Tests Traction Test Results negative bilaterally Shoulder Special Tests IR MMT Test Results reproduces pain on the right Painful Arc Test Results positive for pain at 130 degrees on the right Drop Arm Rotator Cuff Test Results negative bilaterally Comments Pt able to maintain arm position on the right without compensations but does report increased pain Jeffrey Basim Impingement Test Results positive R; negative L PT-OP-M Strength Start: 04/18/21 17:24 Freq: Status: Active Protocol: Document 04/25/21 09:45 AW (Rec: 04/25/21 12:52 AW [id number]) Shoulder Strength Shoulder Manual Muscle Testing Right Flexion 4+ Good+ Extension 5 Normal Abduction (C5) 4+ Good+ External Rotation 5 Normal Internal Rotation 4+ Good+ Horizontal Abduction 5 Normal Horizontal Adduction 4+ Good+ Comments Left shoulder grossly 5/5 without pain. Elbow/Forearm Strength Elbow and Forearm Manual Muscle Testing Right Flexion (C6) 5 Normal Extension (C7) 5 Normal Comments 5/5 but painful in resisted flexion PT-OP-Q Treatments Start: 04/18/21 17:24 Freq: Status: Active Protocol: Document 06/04/21 10:52 AW (Rec: 06/04/21 12:14 AW [id number]) Therapeutic Exercises Supine Exercises lower trap activation Supine Exercise Name lower trap activation/posture press Reps/Minutes 5SH x 10 Comments cues to avoid UT firing; HEP Sidelying Exercises Sleeper Stretch Sidelying Exercise Name IR sleeper stretch Side right Reps/Minutes 2x20 Comments HEP review and pt does stay in pain free range GH ER Sidelying Exercise Name GH ER Side right Resistance AROM, 1#, 2#, 3# Equipment Used past neutral today Reps/Minutes 15, 10, 10, 10 Comments progressed resistance and added to HEP Sitting Exercises UT stretch Sitting Exercise Name UT stretch Side bilateral Comments cued heavy arm, ear to ceiling ; HEP Standing Exercises GH IR Standing Exercise Name GH IR Side right Resistance TB2 Reps/Minutes x15 Comments no pain GH ER Standing Exercise Name GH ER Side right Resistance TB1 Reps/Minutes 2x12 Comments tiring but no pain Stretch Standing Exercise Name ER stretch in doorway Side right Reps/Minutes 2x30 Comments HEP review isometric shoulder Standing Exercise Name isometric shoulder; IR, ER, abd Side right Equipment Used pt denies pain Reps/Minutes 5SH x 10 Comments discussed but did not perform; pt continues to deny pain GH row Standing Exercise Name GH row Resistance TB2 Comments focus eccentric phase; cued soft upper traps; HEP Manual Therapy Treatment Soft Tissue Mobilization B upper traps, cervical paraspinals Body Location B upper traps, cervical paraspinals Mobilization Type Strumming,Sustained Pressure Intensity/Depth Moderate Body Position Supine Comments Contract/relax into rotation and lateral flexion with improved ROM post tx R rhomboids Body Location R rhomboids Mobilization Type Strumming,Sustained Pressure, Trigger Point Release Intensity/Depth Moderate Body Position Sidelying Comments Pt using lax ball and theracane at home R biceps, supraspinatus, infraspinatus Body Location R supraspinatus, infraspinatus Mobilization Type Strumming,Sustained Pressure Intensity/Depth Moderate Body Position Sidelying Joint Mobilizations scapulothoracic Joint scapulothoracic Direction inferior, medial, rotation Body Position Sidelying Comments Improved inferior glide post tx Manual Techniques CS traction Reps/Duration 2x1' Comments to improve CS rotation Self-Care/Home Management Treatment Education Patient Education Home Exercise Program Other Education Added sidelying resisted ER and supine lower trap activation to HEP PT-OP-T Assessment and Plan Start: 04/18/21 17:24 Freq: Status: Active Protocol: Document 06/04/21 10:52 AW (Rec: 06/04/21 12:14 AW [id number]) Physical Therapy Assessment Goals Three Impairment ROM Security Incident Response Specialist Goal (LTG) Pt will improve internal rotation ROM to equal that of left arm to reduce pain with dressing tasks and other self- care tasks. LTG Duration 8 weeks - 06/20/21 Two Impairment pain Short Term Goal (STG) Pt will lift the weight of his arm in abduction without increase in pain. STG Duration 4 weeks - 05/23/21 Security Incident Response Specialist Goal (LTG) Pt will bear weight on arms in quadruped without increase in pain to promote return to regular workouts and home remodeling projects LTG Duration 8 weeks - 06/20/21 One Impairment HEP Short Term Goal (STG) Pt will be instructed in progressive HEP to improve ROM , strength, and stability of left shoulder. STG Duration 4 weeks - 05/23/21 Half-Way Goal (LTG) Pt will be independent with HEP to improve ROM, strength, and stability of left shoulder . LTG Duration 8 weeks - 06/20/21 Assessment Summary Assessment Andria reports slow improvement overall. Internal rotation ROM remains limited but was ~T12 before tx and improved to ~T10 after tx. Pt tolerated resisted shoulder ER today with no pain complaint. Added same to HEP. Physical Therapy Plan Frequency and Duration Frequency of Treatment 1-2x/week Duration of Treatment 8 weeks Plan of Care Start Date 04/25/21 Plan of Care End Date 06/20/21 Therapeutic Interventions Therapeutic Interventions Home Exercise Program,Joint Mobilizations,Manual Therapy, Neuromuscular Re-education, Taping,Therapeutic Activities, Therapeutic Exercises Modalities Cold Pack/Ice Massage,Electric Stimulation,Hot Packs Next Visit Focus/Plan Next Note Type Treatment Note Next Visit Plan Progress note due after next visit (already scheduled with PT) assess goals; extend POC? Assess response to resisted SL ER. Consider adding theraband ER/IR to HEP
--- NOTE | 2021-06-19 11:10 | PT.OTN ---
Current Diagnoses Abnormal posture (06/19/21) Unspecified injury of right shoulder and upper arm, initial encounter (06/19/21) Physical Therapy Treatment Note PT-OP-A Visit Information Start: 04/18/21 17:24 Freq: Status: Active Protocol: Document 06/19/21 10:13 MA (Rec: 06/19/21 11:10 MA [id number]) Out-Patient Physical Therapy Visit Information Visit Information Visit Type Treatment Note Visit Start Time 10:15 Visit Stop Time 11:00 Total Visit Minutes 45 Visit Number 7 Number of AIR CONDITIONING ENGINEER Visits 1 PT-OP-B Current Condition Start: 04/18/21 17:24 Freq: Status: Active Protocol: Document 04/25/21 09:45 AW (Rec: 04/18/21 17:27 AW [id number]) Current Condition History of Current Condition Onset Date 2 years Current Complaints right shoulder pain History of Current Condition Two years ago, Andria shoveled a 6 foot tall pile of dirt and began to experience right biceps and shoulder pain afterward. He had PT which was helpful but pain has returned . He has pain when he turns on his right side during sleep and he has to sleep with arms <90 degrees elevation or he gets tingling in arm and 3rd/ 4th digits. Pain is mostly in the posterior shoulder and travels toward the front of the arm and outside of the elbow. Heavy workouts (squats, pushups, pullups) and sleeping right side makes it worse. 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 He has history of left shoulder impingement which was treated surgically with distal clavicle resection (Cristofer procedure) to good effect. Prior Treatments and Tests PT for shoulder a few years ago which was helpful Future Testing and Treatments Planned Sleep study Treatment Goals Patient/Caregiver Goals Improve left shoulder function to be able to perform job duties and home remodel projects without pain. Personal Factors Other Personal Factors That May Effect Pt tends to work through pain Therapy/Recovery in workouts or projects and will need extensive counseling on activity modification. PT-OP-C Subjective Start: 04/18/21 17:24 Freq: Status: Active Protocol: Document 06/19/21 10:13 MA (Rec: 06/19/21 11:10 MA [id number]) OP-PT Subjective Patient Comments Patient Comments Calos had no issues with new HEP exercises PT-OP-F Manual Assessment Start: 04/18/21 17:24 Freq: Status: Active Protocol: Document 04/25/21 09:45 AW (Rec: 04/25/21 12:12 AW [id number]) Manual Assessments Soft Tissue Assessment Soft Tissue Mobility Assessment Moderate tone bilateral upper traps. Tender to palpation in supraspinatus and long head biceps. Joint Mobility Assessment Joint Mobility Assessment Decreased and painful posterior and inferior glides at left shoulder. No AC joint tenderness or change in pain symptoms with gapping PT-OP-H Neuro Start: 04/18/21 17:24 Freq: Status: Active Protocol: Document 04/25/21 09:45 AW (Rec: 04/25/21 12:12 AW [id number]) Sensation Evaluation Gross Sensation Gross Sensation WNL Deep Tendon Reflex & Clonus Assessment Deep Tendon Reflex Bilateral Bicep Deep Tendon Reflex 2+ Normal PT-OP-J Posture/Palpation/Skin Start: 04/18/21 17:24 Freq: Status: Active Protocol: Document 04/25/21 09:45 AW (Rec: 04/25/21 12:12 AW [id number]) Posture Evaluation Comments Posture Comments Mildly forward head, humeral head sits anteriorly bilaterally, shoulders slope downward. Scapulae >4 finger widths from spinous processes with mild winging bilaterally (right more affected than left ). PT-OP-K Range of Motion Start: 04/18/21 17:24 Freq: Status: Active Protocol: Document 04/25/21 09:45 AW (Rec: 04/25/21 12:52 AW [id number]) Cervical Spine Range of Motion Cervical Spine Active Degrees Testing Position Sitting Flexion 60 Extension 60 Rotation Left 63 Rotation Right 65 Lateral Flexion Left 35 Lateral Flexion Right 35 Shoulder Goniometric Range of Motion Shoulder Right Shoulder ROM WFL Yes Testing Position Sitting External Rotation at 0 degrees Abduction 60 Internal Rotation Behind Back (text) T10 Left Shoulder ROM WFL Yes Testing Position Sitting External Rotation at 0 degrees Abduction 75 Internal Rotation Behind Back (text) T6 Comments Flexion and abduction WNL and without pain Shoulder ROM Limitations Shoulder ROM Limitations Pain Comments Flexion and abduction minimally reduced compared with left side and reproduce pain. Elbow/Forearm Range of Motion Elbow/Forearm Right Elbow/Forearm ROM WFL Yes ROM Testing Position Supine Comments ROM WNL but extension and supination reproduce pain. PT-OP-L Special Tests Start: 04/18/21 17:24 Freq: Status: Active Protocol: Document 04/25/21 09:45 AW (Rec: 04/25/21 12:52 AW [id number]) Special Tests Cervical Spine Special Tests Traction Test Results negative bilaterally Shoulder Special Tests IR MMT Test Results reproduces pain on the right Painful Arc Test Results positive for pain at 130 degrees on the right Drop Arm Rotator Cuff Test Results negative bilaterally Comments Pt able to maintain arm position on the right without compensations but does report increased pain Jeffrey Basim Impingement Test Results positive R; negative L PT-OP-M Strength Start: 04/18/21 17:24 Freq: Status: Active Protocol: Document 04/25/21 09:45 AW (Rec: 04/25/21 12:52 AW [id number]) Shoulder Strength Shoulder Manual Muscle Testing Right Flexion 4+ Good+ Extension 5 Normal Abduction (C5) 4+ Good+ External Rotation 5 Normal Internal Rotation 4+ Good+ Horizontal Abduction 5 Normal Horizontal Adduction 4+ Good+ Comments Left shoulder grossly 5/5 without pain. Elbow/Forearm Strength Elbow and Forearm Manual Muscle Testing Right Flexion (C6) 5 Normal Extension (C7) 5 Normal Comments 5/5 but painful in resisted flexion PT-OP-Q Treatments Start: 04/18/21 17:24 Freq: Status: Active Protocol: Document 06/19/21 10:13 MA (Rec: 06/19/21 11:10 MA [id number]) Therapeutic Exercises Sidelying Exercises Sleeper Stretch Sidelying Exercise Name IR sleeper stretch Side right Reps/Minutes 2x20 Comments HEP review and pt does stay in pain free range GH ER Sidelying Exercise Name GH ER Side right Resistance AROM 3# Equipment Used past neutral today Reps/Minutes 15x3 Comments progressed resistance and added to HEP Standing Exercises GH IR Standing Exercise Name GH IR Side right Resistance TB3 Reps/Minutes x15 Comments added to HEP GH ER Standing Exercise Name GH ER Side right Resistance TB3 Reps/Minutes 2x12 Comments added to HEP Manual Therapy Treatment Soft Tissue Mobilization B upper traps, cervical paraspinals Body Location B upper traps, cervical paraspinals Mobilization Type Strumming,Sustained Pressure Intensity/Depth Moderate Body Position Supine Comments Contract/relax into rotation and lateral flexion with improved ROM post tx R rhomboids Body Location R rhomboids Mobilization Type Strumming,Sustained Pressure, Trigger Point Release Intensity/Depth Moderate Body Position Sidelying Comments Pt using lax ball and theracane at home Joint Mobilizations GH Joint GH Direction inferior Grade II Body Position Sitting Comments MWM- Active ER with belt Self-Care/Home Management Treatment Education Patient Education Home Exercise Program Other Education Added to HEP: resisted IR/ER with TB3 PT-OP-T Assessment and Plan Start: 04/18/21 17:24 Freq: Status: Active Protocol: Document 06/19/21 10:13 MA (Rec: 06/19/21 11:10 MA [id number]) Physical Therapy Assessment Goals Three Impairment ROM Sheet Rocker Goal (LTG) Pt will improve internal rotation ROM to equal that of left arm to reduce pain with dressing tasks and other self- care tasks. LTG Duration 8 weeks - 06/20/21 Two Impairment pain Short Term Goal (STG) Pt will lift the weight of his arm in abduction without increase in pain. STG Duration Achieved 06/19/21 Long-Term Goal (LTG) Pt will bear weight on arms in quadruped without increase in pain to promote return to regular workouts and home remodeling projects LTG Duration Achieved 06/19/21 One Impairment HEP Short Term Goal (STG) Pt will be instructed in progressive HEP to improve ROM , strength, and stability of left shoulder. STG Duration Achieved 06/19/21 Sheet Rocker Goal (LTG) Pt will be independent with HEP to improve ROM, strength, and stability of left shoulder . LTG Duration 8 weeks - 06/20/21 Assessment Summary Assessment Pt reports improved pain during cervical rotation after manual therapy. He improves R shd IR from ~T12-T9 this session after MWM but has pain during IR sleeper stretch. Added to HEP resisted IR/ER with lvl 3 TB. Pt feels he is doing better but continues to have some R shd pain. He would like to begin lifting again during workouts. 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 Physical Therapy Plan Frequency and Duration Frequency of Treatment 1-2x/week Duration of Treatment 8 weeks Plan of Care Start Date 04/25/21 Plan of Care End Date 06/20/21 Therapeutic Interventions Therapeutic Interventions Home Exercise Program,Joint Mobilizations,Manual Therapy, Neuromuscular Re-education, Taping,Therapeutic Activities, Therapeutic Exercises Modalities Cold Pack/Ice Massage,Electric Stimulation,Hot Packs Next Visit Focus/Plan Next Note Type Progress Note Next Visit Plan Progress note next visit. Continue working on improving cervical rotation without pain and R shd IR. Review new HEP exercises from last two sessions (resisted ER/IR and supine UT exercise). Begin heavier lifts to safely return to work outs.
--- NOTE | 2021-06-25 12:17 | PT.OTN ---
Current Diagnoses Abnormal posture (06/25/21) Unspecified injury of right shoulder and upper arm, initial encounter (06/25/21) Physical Therapy Treatment Note PT-OP-A Visit Information Start: 04/18/21 17:24 Freq: Status: Active Protocol: Document 06/25/21 11:18 AW (Rec: 06/25/21 12:17 AW [id number]) Out-Patient Physical Therapy Visit Information Visit Information Visit Type Progress Note Visit Start Time 11:15 Visit Stop Time 11:50 Total Visit Minutes 40 Visit Number 8 Number of INFORMATION TECHNOLOGY TECHNICIAN Visits 0 PT-OP-B Current Condition Start: 04/18/21 17:24 Freq: Status: Active Protocol: Document 04/25/21 09:45 AW (Rec: 04/18/21 17:27 AW [id number]) Current Condition History of Current Condition Onset Date 2 years Current Complaints right shoulder pain History of Current Condition Two years ago, Andria shoveled a 6 foot tall pile of dirt and began to experience right biceps and shoulder pain afterward. He had PT which was helpful but pain has returned . He has pain when he turns on his right side during sleep and he has to sleep with arms <90 degrees elevation or he gets tingling in arm and 3rd/ 4th digits. Pain is mostly in the posterior shoulder and travels toward the front of the arm and outside of the elbow. Heavy workouts (squats, pushups, pullups) and sleeping right side makes it worse. 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 He has history of left shoulder impingement which was treated surgically with distal clavicle resection (Cristofer procedure) to good effect. Prior Treatments and Tests PT for shoulder a few years ago which was helpful Future Testing and Treatments Planned Sleep study Treatment Goals Patient/Caregiver Goals Improve left shoulder function to be able to perform job duties and home remodel projects without pain. Personal Factors Other Personal Factors That May Effect Pt tends to work through pain Therapy/Recovery in workouts or projects and will need extensive counseling on activity modification. PT-OP-C Subjective Start: 04/18/21 17:24 Freq: Status: Active Protocol: Document 06/25/21 11:18 AW (Rec: 06/25/21 12:17 AW [id number]) OP-PT Subjective Patient Comments Patient Comments Nothing is worse but point between shoulder blades is still bothersome. PT-OP-F Manual Assessment Start: 04/18/21 17:24 Freq: Status: Active Protocol: Document 04/25/21 09:45 AW (Rec: 04/25/21 12:12 AW [id number]) Manual Assessments Soft Tissue Assessment Soft Tissue Mobility Assessment Moderate tone bilateral upper traps. Tender to palpation in supraspinatus and long head biceps. Joint Mobility Assessment Joint Mobility Assessment Decreased and painful posterior and inferior glides at left shoulder. No AC joint tenderness or change in pain symptoms with gapping PT-OP-H Neuro Start: 04/18/21 17:24 Freq: Status: Active Protocol: Document 04/25/21 09:45 AW (Rec: 04/25/21 12:12 AW [id number]) Sensation Evaluation Gross Sensation Gross Sensation WNL Deep Tendon Reflex & Clonus Assessment Deep Tendon Reflex Bilateral Bicep Deep Tendon Reflex 2+ Normal PT-OP-J Posture/Palpation/Skin Start: 04/18/21 17:24 Freq: Status: Active Protocol: Document 04/25/21 09:45 AW (Rec: 04/25/21 12:12 AW [id number]) Posture Evaluation Comments Posture Comments Mildly forward head, humeral head sits anteriorly bilaterally, shoulders slope downward. Scapulae >4 finger widths from spinous processes with mild winging bilaterally (right more affected than left ). PT-OP-K Range of Motion Start: 04/18/21 17:24 Freq: Status: Active Protocol: Document 04/25/21 09:45 AW (Rec: 04/25/21 12:52 AW [id number]) Cervical Spine Range of Motion Cervical Spine Active Degrees Testing Position Sitting Flexion 60 Extension 60 Rotation Left 63 Rotation Right 65 Lateral Flexion Left 35 Lateral Flexion Right 35 Shoulder Goniometric Range of Motion Shoulder Right Shoulder ROM WFL Yes Testing Position Sitting External Rotation at 0 degrees Abduction 60 Internal Rotation Behind Back (text) T10 Left Shoulder ROM WFL Yes Testing Position Sitting External Rotation at 0 degrees Abduction 75 Internal Rotation Behind Back (text) T6 Comments Flexion and abduction WNL and without pain Shoulder ROM Limitations Shoulder ROM Limitations Pain Comments Flexion and abduction minimally reduced compared with left side and reproduce pain. Elbow/Forearm Range of Motion Elbow/Forearm Right Elbow/Forearm ROM WFL Yes ROM Testing Position Supine Comments ROM WNL but extension and supination reproduce pain. PT-OP-L Special Tests Start: 04/18/21 17:24 Freq: Status: Active Protocol: Document 04/25/21 09:45 AW (Rec: 04/25/21 12:52 AW [id number]) Special Tests Cervical Spine Special Tests Traction Test Results negative bilaterally Shoulder Special Tests IR MMT Test Results reproduces pain on the right Painful Arc Test Results positive for pain at 130 degrees on the right Drop Arm Rotator Cuff Test Results negative bilaterally Comments Pt able to maintain arm position on the right without compensations but does report increased pain Jeffrey Basim Impingement Test Results positive R; negative L PT-OP-M Strength Start: 04/18/21 17:24 Freq: Status: Active Protocol: Document 04/25/21 09:45 AW (Rec: 04/25/21 12:52 AW [id number]) Shoulder Strength Shoulder Manual Muscle Testing Right Flexion 4+ Good+ Extension 5 Normal Abduction (C5) 4+ Good+ External Rotation 5 Normal Internal Rotation 4+ Good+ Horizontal Abduction 5 Normal Horizontal Adduction 4+ Good+ Comments Left shoulder grossly 5/5 without pain. Elbow/Forearm Strength Elbow and Forearm Manual Muscle Testing Right Flexion (C6) 5 Normal Extension (C7) 5 Normal Comments 5/5 but painful in resisted flexion PT-OP-Q Treatments Start: 04/18/21 17:24 Freq: Status: Active Protocol: Document 06/25/21 11:18 AW (Rec: 06/25/21 12:17 AW [id number]) Cardio Equipment Upper Body Ergometer (UBE) Duration (Minutes) 5 RPM 75 Seat Position 13 Height 3 Other fwd/bwd Therapeutic Exercises Prone Exercises row Prone Exercise Name row Side right Resistance 4# db Reps/Minutes 2x10 Comments focus on end range distraction Sidelying Exercises open book Sidelying Exercise Name open book Side bilateral Resistance emphasis on scap protraction Reps/Minutes x10 Comments with sustained pressure at rhomboid TP throughout ROM Standing Exercises wall pushup Standing Exercise Name wall pushup + protraction Equipment Used feet 3' from wall Comments HEP ER/IR reactive isometrics Standing Exercise Name ER/IR reactive isometrics Side right Resistance TB3 Reps/Minutes 5 laps each direction Comments HEP GH IR Standing Exercise Name GH IR Side right Resistance TB3 Reps/Minutes x15 Comments HEP review GH ER Standing Exercise Name GH ER Side right Resistance TB3 Reps/Minutes 2x12 Comments HEP review Other Exercises cat cow Other Exercise Name cat cow Equipment Used emphasized stretch into protraction Reps/Minutes x10 Comments HEP Manual Therapy Treatment Soft Tissue Mobilization R rhomboids Body Location R rhomboids Mobilization Type Strumming,Sustained Pressure, Trigger Point Release Intensity/Depth Moderate Body Position Sidelying Comments Pt using lax ball and theracane at home Joint Mobilizations scapulothoracic Joint scapulothoracic Direction inferior, medial, rotation Body Position Sidelying Comments Improved medial glide post tx Self-Care/Home Management Treatment Education Patient Education Home Exercise Program Other Education Added wall push up with instruction to trial from various surface heights to test symptom irritability but to back off if painful. Added reactive isometrics EI/ER and cat cow. PT-OP-T Assessment and Plan Start: 04/18/21 17:24 Freq: Status: Active Protocol: Document 06/25/21 11:18 AW (Rec: 06/25/21 12:17 AW [id number]) Physical Therapy Assessment Goals Four Impairment interscapular irritability/ pain Senior Care Goal (LTG) Pt will improve scapular mobility and protraction strength for return to regular workouts including pushups without pain. LTG Duration 6 weeks - 08/06/21 Three Impairment ROM Senior Care Goal (LTG) Pt will improve internal rotation ROM to equal that of left arm to reduce pain with dressing tasks and other self- care tasks. 06/27/21 - PROGRESSING LTG Duration 6 weeks - 08/06/21 Two Impairment pain Short Term Goal (STG) Pt will lift the weight of his arm in abduction without increase in pain. STG Duration Achieved 06/19/21 It Business Analyst Goal (LTG) Pt will bear weight on arms in quadruped without increase in pain to promote return to regular workouts and home remodeling projects LTG Duration Achieved 06/19/21 One Impairment HEP Short Term Goal (STG) Pt will be instructed in progressive HEP to improve ROM , strength, and stability of left shoulder. STG Duration Achieved 06/19/21 It Business Analyst Goal (LTG) Pt will be independent with HEP to improve ROM, strength, and stability of left shoulder . LTG Duration 8 weeks - 06/20/21 Progress Towards Goals Progress Towards Goals Progressing Toward Goals Progress Comments Pt has progressed well with respect to rotator cuff. He reports reduced pain and is able to tolerate increased load. He is still having irritability along the medial border or the right scapula which is limiting his return to regular workouts. Assessment Summary Assessment Focused treatment on rhomboids , scapular mobility, and protraction strength. Will continue therapy for another six weeks to ease return to regular workouts. Physical Therapy Plan Frequency and Duration Frequency of Treatment 1-2x/week Duration of Treatment 6 weeks Plan of Care Start Date 06/25/21 Plan of Care End Date 08/06/21 Therapeutic Interventions Therapeutic Interventions Home Exercise Program,Joint Mobilizations,Manual Therapy, Neuromuscular Re-education, Taping,Therapeutic Activities, Therapeutic Exercises Modalities Cold Pack/Ice Massage,Electric Stimulation,Hot Packs Next Visit Focus/Plan Next Note Type Treatment Note Next Visit Plan Continue to load in quadruped, modified push up, protraction strength. MT for scapular mobility and rhomboid trigger points
--- NOTE | 2021-06-25 12:18 | PT.OPPOC ---
Physical, Occupational & Speech Therapy At [facility] Current Diagnoses Abnormal posture (06/25/21) Unspecified injury of right shoulder and upper arm, initial encounter (06/25/21) Visit Care Team Role Provider Type Ronak Nelson MD Attending Provider Physician Family Provider Primary Care Provider Referring Provider Specialty: Internal Medicine Address: [address] [place] [address], [address], [facility] Email: [email or web address] Plan Of Care PT-OP-T Assessment and Plan Start: 04/18/21 17:24 Freq: Status: Active Protocol: Document 06/25/21 11:18 AW (Rec: 06/25/21 12:17 AW [id number]) Physical Therapy Assessment Goals Four Impairment interscapular irritability/ pain Dive Supervisor Goal (LTG) Pt will improve scapular mobility and protraction strength for return to regular workouts including pushups without pain. LTG Duration 6 weeks - 08/06/21 Three Impairment ROM Nursing Home Goal (LTG) Pt will improve internal rotation ROM to equal that of left arm to reduce pain with dressing tasks and other self- care tasks. 06/27/21 - PROGRESSING LTG Duration 6 weeks - 08/06/21 Two Impairment pain Short Term Goal (STG) Pt will lift the weight of his arm in abduction without increase in pain. STG Duration Achieved 06/19/21 Nursing Home Goal (LTG) Pt will bear weight on arms in quadruped without increase in pain to promote return to regular workouts and home remodeling projects LTG Duration Achieved 06/19/21 One Impairment HEP Short Term Goal (STG) Pt will be instructed in progressive HEP to improve ROM , strength, and stability of left shoulder. STG Duration Achieved 06/19/21 Dive Supervisor Goal (LTG) Pt will be independent with HEP to improve ROM, strength, and stability of left shoulder . LTG Duration 8 weeks - 06/20/21 Progress Towards Goals Progress Towards Goals Progressing Toward Goals Progress Comments Pt has progressed well with respect to rotator cuff. He reports reduced pain and is able to tolerate increased load. He is still having irritability along the medial border or the right scapula which is limiting his return to regular workouts. Assessment Summary Assessment Focused treatment on rhomboids , scapular mobility, and protraction strength. Will continue therapy for another six weeks to ease return to regular workouts. Physical Therapy Plan Frequency and Duration Frequency of Treatment 1-2x/week Duration of Treatment 6 weeks Plan of Care Start Date 06/25/21 Plan of Care End Date 08/06/21 Therapeutic Interventions Therapeutic Interventions Home Exercise Program,Joint Mobilizations,Manual Therapy, Neuromuscular Re-education, Taping,Therapeutic Activities, Therapeutic Exercises Modalities Cold Pack/Ice Massage,Electric Stimulation,Hot Packs Next Visit Focus/Plan Next Note Type Treatment Note Next Visit Plan Continue to load in quadruped, modified push up, protraction strength. MT for scapular mobility and rhomboid trigger points Plan of Care Dates Plan of Care Start Date 06/25/21 Plan of Care End Date 08/06/21 Electronically Signed by: Jazmyne Reed, PT 06/25/21 2417 If you are in agreement with this Plan of Care, please return a signed and dated copy. I have reviewed this Plan of Care and certify that the skilled therapy services above are required to meet the patient?s needs. Physician Signature Date Printed Name and Credentials Clinical Instructor Signature Printed Name and Credentials
--- NOTE | 2021-07-01 14:06 | PT-OP ANOTE ---
Left VM regarding missed appt 07/01. Gave pt options to reschedule on 07/03 or reminded of next appt scheduled 07/17.
--- NOTE | 2021-07-17 14:32 | PT.OTN ---
Current Diagnoses Abnormal posture (07/17/21) Unspecified injury of right shoulder and upper arm, initial encounter (07/17/21) Physical Therapy Treatment Note PT-OP-A Visit Information Start: 04/18/21 17:24 Freq: Status: Active Protocol: Document 07/17/21 13:45 MA (Rec: 07/17/21 14:32 MA [id number]) Out-Patient Physical Therapy Visit Information Visit Information Visit Type Treatment Note Visit Start Time 13:45 Visit Stop Time 14:30 Total Visit Minutes 45 Visit Number 9 Number of TEACHER VOCATIONAL TRAINING Visits 1 PT-OP-B Current Condition Start: 04/18/21 17:24 Freq: Status: Active Protocol: Document 04/25/21 09:45 AW (Rec: 04/18/21 17:27 AW [id number]) Current Condition History of Current Condition Onset Date 2 years Current Complaints right shoulder pain History of Current Condition Two years ago, Andria shoveled a 6 foot tall pile of dirt and began to experience right biceps and shoulder pain afterward. He had PT which was helpful but pain has returned . He has pain when he turns on his right side during sleep and he has to sleep with arms <90 degrees elevation or he gets tingling in arm and 3rd/ 4th digits. Pain is mostly in the posterior shoulder and travels toward the front of the arm and outside of the elbow. Heavy workouts (squats, pushups, pullups) and sleeping right side makes it worse. 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 He has history of left shoulder impingement which was treated surgically with distal clavicle resection (Cristofer procedure) to good effect. Prior Treatments and Tests PT for shoulder a few years ago which was helpful Future Testing and Treatments Planned Sleep study Treatment Goals Patient/Caregiver Goals Improve left shoulder function to be able to perform job duties and home remodel projects without pain. Personal Factors Other Personal Factors That May Effect Pt tends to work through pain Therapy/Recovery in workouts or projects and will need extensive counseling on activity modification. PT-OP-C Subjective Start: 04/18/21 17:24 Freq: Status: Active Protocol: Document 07/17/21 13:45 MA (Rec: 07/17/21 14:32 MA [id number]) OP-PT Subjective Patient Comments Patient Comments Pt has started working out again at work. He has had no increase in pain when working out, but still feels occassional pain in R rhomboids. PT-OP-F Manual Assessment Start: 04/18/21 17:24 Freq: Status: Active Protocol: Document 04/25/21 09:45 AW (Rec: 04/25/21 12:12 AW [id number]) Manual Assessments Soft Tissue Assessment Soft Tissue Mobility Assessment Moderate tone bilateral upper traps. Tender to palpation in supraspinatus and long head biceps. Joint Mobility Assessment Joint Mobility Assessment Decreased and painful posterior and inferior glides at left shoulder. No AC joint tenderness or change in pain symptoms with gapping PT-OP-H Neuro Start: 04/18/21 17:24 Freq: Status: Active Protocol: Document 04/25/21 09:45 AW (Rec: 04/25/21 12:12 AW [id number]) Sensation Evaluation Gross Sensation Gross Sensation WNL Deep Tendon Reflex & Clonus Assessment Deep Tendon Reflex Bilateral Bicep Deep Tendon Reflex 2+ Normal PT-OP-J Posture/Palpation/Skin Start: 04/18/21 17:24 Freq: Status: Active Protocol: Document 04/25/21 09:45 AW (Rec: 04/25/21 12:12 AW [id number]) Posture Evaluation Comments Posture Comments Mildly forward head, humeral head sits anteriorly bilaterally, shoulders slope downward. Scapulae >4 finger widths from spinous processes with mild winging bilaterally (right more affected than left ). PT-OP-K Range of Motion Start: 04/18/21 17:24 Freq: Status: Active Protocol: Document 04/25/21 09:45 AW (Rec: 04/25/21 12:52 AW [id number]) Cervical Spine Range of Motion Cervical Spine Active Degrees Testing Position Sitting Flexion 60 Extension 60 Rotation Left 63 Rotation Right 65 Lateral Flexion Left 35 Lateral Flexion Right 35 Shoulder Goniometric Range of Motion Shoulder Right Shoulder ROM WFL Yes Testing Position Sitting External Rotation at 0 degrees Abduction 60 Internal Rotation Behind Back (text) T10 Left Shoulder ROM WFL Yes Testing Position Sitting External Rotation at 0 degrees Abduction 75 Internal Rotation Behind Back (text) T6 Comments Flexion and abduction WNL and without pain Shoulder ROM Limitations Shoulder ROM Limitations Pain Comments Flexion and abduction minimally reduced compared with left side and reproduce pain. Elbow/Forearm Range of Motion Elbow/Forearm Right Elbow/Forearm ROM WFL Yes ROM Testing Position Supine Comments ROM WNL but extension and supination reproduce pain. PT-OP-L Special Tests Start: 04/18/21 17:24 Freq: Status: Active Protocol: Document 04/25/21 09:45 AW (Rec: 04/25/21 12:52 AW [id number]) Special Tests Cervical Spine Special Tests Traction Test Results negative bilaterally Shoulder Special Tests IR MMT Test Results reproduces pain on the right Painful Arc Test Results positive for pain at 130 degrees on the right Drop Arm Rotator Cuff Test Results negative bilaterally Comments Pt able to maintain arm position on the right without compensations but does report increased pain Jeffrey Basim Impingement Test Results positive R; negative L PT-OP-M Strength Start: 04/18/21 17:24 Freq: Status: Active Protocol: Document 04/25/21 09:45 AW (Rec: 04/25/21 12:52 AW [id number]) Shoulder Strength Shoulder Manual Muscle Testing Right Flexion 4+ Good+ Extension 5 Normal Abduction (C5) 4+ Good+ External Rotation 5 Normal Internal Rotation 4+ Good+ Horizontal Abduction 5 Normal Horizontal Adduction 4+ Good+ Comments Left shoulder grossly 5/5 without pain. Elbow/Forearm Strength Elbow and Forearm Manual Muscle Testing Right Flexion (C6) 5 Normal Extension (C7) 5 Normal Comments 5/5 but painful in resisted flexion PT-OP-Q Treatments Start: 04/18/21 17:24 Freq: Status: Active Protocol: Document 07/17/21 13:45 MA (Rec: 07/17/21 14:32 MA [id number]) Gym Equipment Cable Column (Body Solid) Bicep Curl Resistance 30# Tricep Ext Resistance 30# Rows Resistance 70#, 100# Reps/Time x10 ea Lat Pull Down Resistance 60# Reps/Time x10 Therapeutic Exercises Standing Exercises wall pushup Standing Exercise Name counter push up + protraction Side bilateral Equipment Used feet 3' from wall Reps/Minutes x10 Comments HEP GH ER Standing Exercise Name GH ER Side right Resistance TB3/4 Reps/Minutes 2x12 Comments HEP Manual Therapy Treatment Soft Tissue Mobilization B upper traps, cervical paraspinals Body Location B upper traps Mobilization Type Strumming,Sustained Pressure Intensity/Depth Moderate Body Position Supine R rhomboids Body Location R rhomboids Mobilization Type Strumming,Sustained Pressure, Trigger Point Release Intensity/Depth Moderate Body Position Sidelying Comments Pt using lax ball and theracane at home PT-OP-T Assessment and Plan Start: 04/18/21 17:24 Freq: Status: Active Protocol: Document 07/17/21 13:45 MA (Rec: 07/17/21 14:32 MA [id number]) Physical Therapy Assessment Goals Four Impairment interscapular irritability/ pain Intermediate Goal (LTG) Pt will improve scapular mobility and protraction strength for return to regular workouts including pushups without pain. LTG Duration 6 weeks - 08/06/21 Three Impairment ROM Intermediate Goal (LTG) Pt will improve internal rotation ROM to equal that of left arm to reduce pain with dressing tasks and other self- care tasks. 06/27/21 - PROGRESSING LTG Duration 6 weeks - 08/06/21 Two Impairment pain Short Term Goal (STG) Pt will lift the weight of his arm in abduction without increase in pain. STG Duration Achieved 06/19/21 Learning Support Specialist Goal (LTG) Pt will bear weight on arms in quadruped without increase in pain to promote return to regular workouts and home remodeling projects LTG Duration Achieved 06/19/21 One Impairment HEP Short Term Goal (STG) Pt will be instructed in progressive HEP to improve ROM , strength, and stability of left shoulder. STG Duration Achieved 06/19/21 Learning Support Specialist Goal (LTG) Pt will be independent with HEP to improve ROM, strength, and stability of left shoulder . LTG Duration 8 weeks - 06/20/21 Assessment Summary Assessment Pt is able to demonstrate good form with all exercises when using weight column today. He has no pain but states that sometimes he feels a twinge with certain movements and points to R rhomboids. He has been progressing back into workouts and has started lifting and performing push ups at home/work with no increase in pain. Physical Therapy Plan Frequency and Duration Frequency of Treatment 1-2x/week Duration of Treatment 6 weeks Plan of Care Start Date 06/25/21 Plan of Care End Date 08/06/21 Therapeutic Interventions Therapeutic Interventions Home Exercise Program,Joint Mobilizations,Manual Therapy, Neuromuscular Re-education, Taping,Therapeutic Activities, Therapeutic Exercises Modalities Cold Pack/Ice Massage,Electric Stimulation,Hot Packs Next Visit Focus/Plan Next Note Type Treatment Note Next Visit Plan Continue to load in quadruped, modified push up, protraction strength. MT for scapular mobility and rhomboid trigger points
--- NOTE | 2021-07-24 12:27 | PT.OTN ---
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 He had PT which was helpful but pain has returned . He has pain when he turns on his right side during sleep and he has to sleep with arms <90 degrees elevation or he gets tingling in arm and 3rd/ 4th digits. Pain is mostly in the posterior shoulder and travels toward the front of the arm and outside of the elbow. Heavy workouts (squats, pushups, pullups) and sleeping right side makes it worse. 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 He has history of left shoulder impingement which was treated surgically with distal clavicle resection (Cristofer procedure) to good effect. Prior Treatments and Tests PT for shoulder a few years ago which was helpful Future Testing and Treatments Planned Sleep study Treatment Goals Patient/Caregiver Goals Improve left shoulder function to be able to perform job duties and home remodel projects without pain. Personal Factors Other Personal Factors That May Effect Pt tends to work through pain Therapy/Recovery in workouts or projects and will need extensive counseling on activity modification. PT-OP-C Subjective Start: 04/18/21 17:24 Freq: Status: Active Protocol: Document 07/24/21 11:21 [facility] (Rec: 07/24/21 12:26 [facility] [id number]) OP-PT Subjective Patient Comments Patient Comments Pt reports he feels pretty good. He still notices some pain when he rolls on his shoulder. Shoulder blade pain has been a lot better. Pt has been able to start to wrok out again and it hasnt had any difficulty. USes lacross ball for self management. Patient Reported Progress Improving PT-OP-F Manual Assessment Start: 04/18/21 17:24 Freq: Status: Active Protocol: Document 04/25/21 09:45 AW (Rec: 04/25/21 12:12 AW [id number]) Manual Assessments Soft Tissue Assessment Soft Tissue Mobility Assessment Moderate tone bilateral upper traps. Tender to palpation in supraspinatus and long head biceps. Joint Mobility Assessment Joint Mobility Assessment Decreased and painful posterior and inferior glides at left shoulder. No AC joint tenderness or change in pain symptoms with gapping PT-OP-H Neuro Start: 04/18/21 17:24 Freq: Status: Active Protocol: Document 04/25/21 09:45 AW (Rec: 04/25/21 12:12 AW [id number]) Sensation Evaluation Gross Sensation Gross Sensation WNL Deep Tendon Reflex & Clonus Assessment Deep Tendon Reflex Bilateral Bicep Deep Tendon Reflex 2+ Normal PT-OP-J Posture/Palpation/Skin Start: 04/18/21 17:24 Freq: Status: Active Protocol: Document 04/25/21 09:45 AW (Rec: 04/25/21 12:12 AW [id number]) Posture Evaluation Comments Posture Comments Mildly forward head, humeral head sits anteriorly bilaterally, shoulders slope downward. Scapulae >4 finger widths from spinous processes with mild winging bilaterally (right more affected than left ). PT-OP-K Range of Motion Start: 04/18/21 17:24 Freq: Status: Active Protocol: Document 04/25/21 09:45 AW (Rec: 04/25/21 12:52 AW [id number]) Cervical Spine Range of Motion Cervical Spine Active Degrees Testing Position Sitting Flexion 60 Extension 60 Rotation Left 63 Rotation Right 65 Lateral Flexion Left 35 Lateral Flexion Right 35 Shoulder Goniometric Range of Motion Shoulder Right Shoulder ROM WFL Yes Testing Position Sitting External Rotation at 0 degrees Abduction 60 Internal Rotation Behind Back (text) T10 Left Shoulder ROM WFL Yes Testing Position Sitting External Rotation at 0 degrees Abduction 75 Internal Rotation Behind Back (text) T6 Comments Flexion and abduction WNL and without pain Shoulder ROM Limitations Shoulder ROM Limitations Pain Comments Flexion and abduction minimally reduced compared with left side and reproduce pain. Elbow/Forearm Range of Motion Elbow/Forearm Right Elbow/Forearm ROM WFL Yes ROM Testing Position Supine Comments ROM WNL but extension and supination reproduce pain. PT-OP-L Special Tests Start: 04/18/21 17:24 Freq: Status: Active Protocol: Document 04/25/21 09:45 AW (Rec: 04/25/21 12:52 AW [id number]) Special Tests Cervical Spine Special Tests Traction Test Results negative bilaterally Shoulder Special Tests IR MMT Test Results reproduces pain on the right Painful Arc Test Results positive for pain at 130 degrees on the right Drop Arm Rotator Cuff Test Results negative bilaterally Comments Pt able to maintain arm position on the right without compensations but does report increased pain Jeffrey Basim Impingement Test Results positive R; negative L PT-OP-M Strength Start: 04/18/21 17:24 Freq: Status: Active Protocol: Document 07/24/21 12:26 [facility] (Rec: 07/24/21 12:27 [facility] [id number]) Shoulder Strength Shoulder Manual Muscle Testing Right Flexion 5 Normal Extension 5 Normal Abduction (C5) 5 Normal Adduction 5 Normal External Rotation 5 Normal Internal Rotation 5 Normal Horizontal Abduction 5 Normal Horizontal Adduction 5 Normal Comments no pain PT-OP-Q Treatments Start: 04/18/21 17:24 Freq: Status: Active Protocol: Document 07/24/21 11:21 [facility] (Rec: 07/24/21 12:26 [facility] [id number]) Manual Therapy Treatment Soft Tissue Mobilization B upper traps, cervical paraspinals Body Location B upper traps, LS & C parspinals Mobilization Type Strumming,Sustained Pressure Intensity/Depth Moderate Body Position Supine Comments w/felx & rot of neck R rhomboids Body Location R rhomboids Mobilization Type Strumming,Sustained Pressure, Trigger Point Release Intensity/Depth Moderate Body Position Sidelying Joint Mobilizations thoracic Comments transverse L FM T1-8 ribs Comments 1. UAP R sternum FM 2. gapping, AP, caudal mobs ribs 1-2; rib 1 PA FM Self-Care/Home Management Treatment Education Other Education edu to cont yoga and cont to wrok on stretches, edu for self 1st rib mob in s/l, edu re: considering massage 1-2x monthly for management of pains d/t his job PT-OP-T Assessment and Plan Start: 04/18/21 17:24 Freq: Status: Active Protocol: Document 07/24/21 11:21 [facility] (Rec: 07/24/21 12:26 [facility] [id number]) Physical Therapy Assessment Goals Four Impairment interscapular irritability/ pain Cofounder Goal (LTG) Pt will improve scapular mobility and protraction strength for return to regular workouts including pushups without pain. LTG Duration achieved 07/24 Three Impairment ROM Correction Goal (LTG) Pt will improve internal rotation ROM to equal that of left arm to reduce pain with dressing tasks and other self- care tasks. 06/27/21 - PROGRESSING 07/24- T8 R, T7 L LTG Duration 6 weeks - 08/06/21 Two Impairment pain Short Term Goal (STG) Pt will lift the weight of his arm in abduction without increase in pain. STG Duration Achieved 06/19/21 Cofounder Goal (LTG) Pt will bear weight on arms in quadruped without increase in pain to promote return to regular workouts and home remodeling projects LTG Duration Achieved 06/19/21 One Impairment HEP Short Term Goal (STG) Pt will be instructed in progressive HEP to improve ROM , strength, and stability of left shoulder. STG Duration Achieved 06/19/21 Cofounder Goal (LTG) Pt will be independent with HEP to improve ROM, strength, and stability of left shoulder . LTG Duration achieved 07/24/21 Assessment Summary Assessment Pt is reporting full return to activity, he has mild itghtness w/R shoulder IR but is w/in 1 in of other UE. He is indep w/HEP and does not feel limited any more. DC to [facility] Physical Therapy Plan Discharge Physical Therapy Discharge Reasons Goals Met
== END 2021-07-25 12:30 ==
LOC: PHYS 11:15
PROVIDERS: Family Provider Student in an Organized Health Care Education/Training Program; PCP Student in an Organized Health Care Education/Training Program; Referring Provider Student in an Organized Health Care Education/Training Program; Visit Provider Student in an Organized Health Care Education/Training Program
DX: S49.91XA Unspecified injury of right shoulder and upper arm, initial encounter (principal); R29.3 Abnormal posture
CPT/HCPCS: 97110; 97140; 97161; 97535

== ENCOUNTER → 2021-10-31 16:23 | Outpatient (CLI) | payer OTHER, SELFPAY ==
[2021-10-31 17:27] LABS: Hematocrit 39.2 % (41-53); Hemoglobin 13.1 g/dL (13.5-17.5); Mean Corpuscular HGB Conc 33.5 % (30-36); Mean Corpuscular Hemoglobin 28.9 PG (26-34); Mean Corpuscular Volume 86.3 fL (80-100); Platelet Count 223 X10^3/uL (150-400); Red Blood Cell Count 4.54 X10^6/uL (4.5-5.9); Red Cell Distribution Width 13.7 % (11.6-14.8); White Blood Cell Count 7.8 X10^3/uL (4.5-11.0)
[2021-10-31 17:32] LABS: Neutrophils Absolute Manual 4992 /uL (3000-5900); Total Cells Counted 100
[2021-10-31 17:39] LABS: RBC Morphology Normal Morphology
== END ==
PROVIDERS: Family Provider Student in an Organized Health Care Education/Training Program; PCP Student in an Organized Health Care Education/Training Program; Referring Provider Student in an Organized Health Care Education/Training Program; Visit Provider Student in an Organized Health Care Education/Training Program
DX: D72.821 Monocytosis (symptomatic) (principal)
CPT/HCPCS: 36415; 85025

== ENCOUNTER 2023-06-09 10:31 | Emergency (ER) | payer OTHER, SELFPAY ==
[2023-06-09] VITALS (12 sets, daily range): BP systolic 133–151; BP diastolic 75–91; PULSE 70–91; RESP 18–23; TEMP 36.8; O2SAT 94–99; BMI 31.2
--- NOTE | 2023-06-09 10:38 | DI.RAD.S_ITS ---
PROCEDURE: XR CHEST 2V INDICATIONS: SOB TECHNIQUE: 2 views of the chest were acquired. COMPARISON: [facility], , CHEST 1 VIEW, 07/23/2016, 19:32. FINDINGS: Surgical changes and devices: None. Lungs and pleura: Lungs are clear. No pleural effusions or pneumothorax. Mediastinum: Mediastinal contours are normal. Heart size is normal. Bones and chest wall: No suspicious bony abnormalities. Soft tissues appear unremarkable. IMPRESSION: No acute pulmonary process. Dictated by: Carmen Rose M.D. on 06/09/2023 at 11:09 Approved by: Carmen Rose M.D. on 06/09/2023 at 11:09
[2023-06-09 11:59] LABS: Add Manual Diff / Slide Review NO; Basophils Absolute Auto 100 /uL (0-100); Eosinophils Absolute Auto 400 /uL (0-450); Eosinophils Percent Auto 4.4 % (2-4); Hematocrit 36.2 % (41-53); Lymphocytes Absolute Auto 1700 /uL (1100-4500); Lymphocytes Percent Auto 19.1 % (25-40); Mean Corpuscular HGB Conc 33.1 % (30-36); Mean Corpuscular Volume 84.6 fL (80-100); Monocytes Absolute Auto 1000 /uL (0-900); Monocytes Percent Auto 11.7 % (3-14); Neutrophils Absolute Auto 5700 /uL (1500-7000); Neutrophils Percent Auto 63.8 % (50-75); Platelet Count 274 X10^3/uL (150-400); Red Blood Cell Count 4.28 X10^6/uL (4.5-5.9); White Blood Cell Count 8.9 X10^3/uL (4.5-11.0)
[2023-06-09 12:07] LABS: INR 1.1 (0.9-1.3); Prothrombin Time 12.6 SECONDS (9.4-12.5)
[2023-06-09 12:10] LABS: PTT Partial Thromboplastin Tim 33 SECONDS (25.1-36.5)
[2023-06-09 12:12] LABS: Adenovirus Not Detected (Not Detect); B. parapertussis Not Detected (Not Detecte); Bordetella pertussis Not Detected (Not Detect); Chlamydophila pneumoniae Not Detected (Not Detect); Coronavirus 229E Not Detected (Not Detect); Coronavirus HKU1 Not Detected (Not Detect); Coronavirus NL 63 Not Detected (Not Detect); Coronavirus OC43 Not Detected (Not Detect); Human Metapneumovirus Not Detected (Not Detect); Human Rhinovirus/Enterovirus Not Detected (Not Detect); Influenza A Not Detected (Not Detect); Influenza B Not Detected (Not Detect); Mycoplasma pneumoniae Not Detected (Not Detect); Parainfluenza Virus 1 Not Detected (Not Detect); Parainfluenza Virus 2 Not Detected (Not Detect); Parainfluenza Virus 3 Not Detected (Not Detect); Parainfluenza Virus 4 Not Detected (Not Detect); Respiratory Syncytial Virus Not Detected (Not Detect); SARS- CoV-2 Not Detected (Not Detecte)
[2023-06-09 12:12] LABS: Alanine Aminotransferase 22 IU/L (<50); Albumin 4.3 g/dL (3.5-5.0); Albumin Globulin Ratio 1.3 (1.0-2.8); Alkaline Phosphatase 58 U/L (38-126); Aspartate Aminotransferase 25 IU/L (17-59); BUN Creatinine Ratio 22.5 (6-22); Bilirubin Total 0.6 mg/dL (0.2-1.3); Blood Urea Nitrogen 20 mg/dL (9-20); Calcium 9.2 mg/dL (8.4-10.2); Carbon Dioxide 25 mmol/L (22-32); Chloride 107 mmol/L (98-107); Creatine Kinase 121 U/L (55-170); Estimated Glomerular Filt Rate > 60 mL/min (>60); Globulin 3.3 g/dL (1.7-4.1); Glucose 91 mg/dL (70-100); HEMOLYSIS < 15 (0-50); Lipase 189 U/L (23-300); Magnesium 2.3 mg/dL (1.6-2.3); Sodium 139 mmol/L (137-145); Total Protein 7.6 g/dL (6.3-8.2)
--- NOTE | 2023-06-09 12:20 | DI.CT.S_ITS ---
PROCEDURE: CT ANGIO CHEST PE PROTOCOL INDICATIONS: dyspnea TECHNIQUE: After the administration of intravenous contrast, 2 mm thick sections acquired from the pulmonary apices to the posterior costophrenic angles. 3-dimensional maximum intensity projection (MIP) coronal and sagittal reformats were then acquired through the thorax. For radiation dose reduction, the following was used: automated exposure control, adjustment of mA and/or kV according to patient size. COMPARISON: [facility], CR, XR CHEST 2V, 06/09/2023, 10:39. FINDINGS: Image quality: Diagnostic. Pulmonary arteries: Pulmonary arteries are normal in size, and demonstrate no intraluminal filling defects to suggest central pulmonary embolism. Lower Neck: No enlarged lymph nodes. Thyroid: No thyroid nodules which require sonographic follow up, per consensus guidelines. Axillae: No enlarged lymph nodes. Chest Wall: Unremarkable. Bones: Unremarkable. Lungs and Pleura: Small scattered areas of nodular opacity within the bases predominantly on the right. Heart: Heart size is normal. No pericardial effusion. Thoracic Vessels: No aortic aneurysm. Mediastinum and Sophie: No enlarged lymph nodes. Esophagus: No wall thickening. Mild hiatal hernia. Upper Abdomen: Visualized upper abdomen solid organs and bowel loops appear normal. IMPRESSION: No pulmonary embolus. Nodular opacities within the lungs predominantly the right base suggestive of infection/inflammation. Atypical etiology such as fungal/mycobacterial should be considered. Dictated by: Carmen Rose M.D. on 06/09/2023 at 12:59 Approved by: Carmen Rose M.D. on 06/09/2023 at 13:01
--- NOTE | 2023-06-09 12:21 | ED_ITS ---
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 Patient is had cough cold congestion for the past couple of weeks. He did recently travel to [place]. However he has become short of breath without chest pain. 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 Denies any medical problems/heart attack strokes diabetes CHF asthma pulmonary embolism. Sent over by walk-in clinic due to low oxygen saturation with ambulation. Patient states feels short of breath with exertion but no chest pain. He does have calf discomfort bilaterally however he was playing pickleball with his during vacation and they both have sore calves. Related Data Home Medications Medication Instructions Recorded Confirmed omeprazole 20 mg capsule,delayed 20 mg PO DAILY 06/09/23 06/09/23 release Previous Rx's Medication Instructions Recorded albuterol sulfate 90 mcg/actuation 2 inhalation inhalation QID PRN 06/09/23 aerosol inhaler (Ventolin HFA) shortness of breath or wheezing #6.7 grams amoxicillin 875 mg-potassium 1 tab PO BID #14 tabs 06/09/23 clavulanate 125 mg tablet benzonatate 100 mg capsule 100 mg PO TID PRN cough #21 caps 06/09/23 Allergies Allergy/AdvReac Type Severity Reaction Status Date / Time No Known Drug Allergies Allergy Verified 06/09/23 09:57 Review of Systems Review of Systems Narrative: GENERAL: negative chills, fatigue, malaise, fever, sweats. HEENT: negative sinus pain, ear pain, sore throat RESPIRATORY: Positive dyspnea, cough CARDIOVASCULAR: negative chest pain, palpitations GASTROINTESTINAL: negative nausea, vomiting, abdominal pain : negative dysuria, frequency, hematuria MUSCULOSKELETAL: negative muscle or bony pain SKIN: negative rash, skin lesions NEUROLOGIC: negative weakness, numbness ROS Unobtainable: All systems reviewed & are unremarkable except as noted in HPI and below Patient History Medical History Wears contact lenses Surgical History Anesthesia History of shoulder surgery (~2015) Social History Smoking Status: Never smoker Smoking Status: Never smoker alcohol intake frequency: 0-2 drinks per day Substance Use Type: does not use Exam Narrative Exam Narrative: GENERAL: in no distress, not toxic not dyspneic HEAD: Normocephalic. EYES: Pupils equal round ENT: Mucous membranes moist. NECK: Trachea midline. CARDIOVASCULAR: Regular rate and rhythm RESPIRATORY: Right base lung diminished lung sounds with crackles but no wheezing or rhonchi. No rales GASTROINTESTINAL: Abdomen soft, non-tender EXTREMITIES: No gross deformities. Calves are nontender. BACK: No flank tenderness. NEURO: AOx4. SKIN: Warm and dry PSYCH: Not anxious, is cooperative Initial Vital Signs Initial Vital Signs: Vital Signs Pulse Rate 85 06/09/23 10:46 Respiratory Rate 20 06/09/23 10:46 Blood Pressure 137/87 06/09/23 10:46 Pulse Oximetry 96 06/09/23 10:46 Scores HEART Score Heart Score history: Slightly Suspicious Heart Score EKG: Normal Heart Score Age: 45-64 years old Heart Score risk factors: No known risk factors Heart Score troponin: < or = to normal limit Heart Score Total: 1 Course Orders Ordered: Discontinued Medications Albuterol (Albuterol Hfa Mdi 60 Puff/8 Gm Inhaler) 2 puff INH NOW ONE Stop: 06/09/23 14:47 Last Admin: 06/09/23 14:54 Dose: Not Given Documented By: SB Amoxicillin/Clavulanate Potassium (Amoxicillin/Clav 875/125 Mg) 1 tab PO NOW ONE Stop: 06/09/23 14:45 Last Admin: 06/09/23 14:55 Dose: 1 tab Documented By: SB Aspirin (Aspirin 81 Mg Chew Tab) 324 mg PO NOW ONE Stop: 06/09/23 11:43 Last Admin: 06/09/23 11:57 Dose: Not Given Documented By: RLS Azithromycin (Azithromycin 250 Mg Tablet) 500 mg PO NOW ONE Stop: 06/09/23 14:45 Last Admin: 06/09/23 14:55 Dose: 500 mg Documented By: MELISSA Benzonatate (Benzonatate 100 Mg Capsule) 100 mg PO NOW ONE Stop: 06/09/23 14:48 Last Admin: 06/09/23 14:55 Dose: 100 mg Documented By: SB Heparin Sodium (Porcine) (Heparin 5,000 Unit/Ml Vial) 9,000 unit 80 unit/kg (9000 unit) IV NOW ONE Stop: 06/09/23 12:31 Last Admin: 06/09/23 12:46 Dose: Not Given Documented By: JASON Sodium Chloride (Normal Saline 0.9%) 500 mls @ 1,000 mls/hr IV BOLUS ONE Stop: 06/09/23 12:50 Last Infusion: 06/09/23 13:24 Dose: Infused Documented By: Admin: 06/09/23 12:48 Dose: 1,000 mls/hr Documented By: JASON Heparin Sodium/Dextrose (Heparin Drip) 25,000 unit in 500 mls @ 40.823 mls/hr IV CONT EDUARDO; Protocol Last Admin: 06/09/23 12:45 Dose: Not Given Documented By: JASON Vital Signs Vital signs: Vital Signs - 8 hr 06/09/23 10:46 06/09/23 10:46 06/09/23 10:54 Temperature 98.2 F Pulse Rate 85 91 H Respiratory Rate 20 18 Blood Pressure 137/87 137/87 Pulse Oximetry 96 95 Oxygen Delivery Method Room Air 06/09/23 11:00 06/09/23 11:00 06/09/23 11:56 Temperature Pulse Rate 81 71 Respiratory Rate Blood Pressure 137/85 Pulse Oximetry 94 98 Oxygen Delivery Method Room Air 06/09/23 11:57 06/09/23 11:57 06/09/23 12:00 Temperature Pulse Rate 72 70 Respiratory Rate 21 Blood Pressure 136/89 Pulse Oximetry 97 97 Oxygen Delivery Method 06/09/23 12:00 06/09/23 12:30 06/09/23 12:30 Temperature Pulse Rate 81 Respiratory Rate 18 Blood Pressure 142/91 H 133/75 Pulse Oximetry 99 Oxygen Delivery Method MDM - SOB/Dyspnea Lab Data 06/09/23 11:50 06/09/23 11:50 Labs: Lab Results 06/09/23 06/09/23 Range/Units 10:36 11:50 WBC 8.9 (4.5-11.0) X10^3/uL RBC 4.28 L (4.5-5.9) X10^6/uL Hgb 12.0 L (13.5-17.5) g/dL Hct 36.2 L (41-53) % MCV 84.6 (80-100) fL MCH 28.0 (26-34) PG MCHC 33.1 (30-36) % RDW 15.0 H (11.6-14.8) % Plt Count 274 (150-400) X10^3/uL Neut % (Auto) 63.8 (50-75) % Lymph % (Auto) 19.1 L (25-40) % Holmes % (Auto) 11.7 (3-14) % Eos % (Auto) 4.4 H (2-4) % Baso % (Auto) 1.0 (0-2) % Neut # (Auto) 5700 (1673-1381) /uL Lymph # (Auto) 1700 (5189-3416) /uL Holmes # (Auto) 1000 H (0-900) /uL Eos # (Auto) 400 (0-450) /uL Baso # (Auto) 100 (0-100) /uL PT 12.6 H (9.4-12.5) SECONDS INR 1.1 (0.9-1.3) APTT 33 (25.1-36.5) SECONDS Sodium 139 (137-145) mmol/L Potassium 4.0 (3.4-5.1) mmol/L Chloride 107 (98-107) mmol/L Carbon Dioxide 25 (22-32) mmol/L BUN 20 (9-20) mg/dL Creatinine 0.89 (0.66-1.25) mg/dL Estimated GFR > 60 (>60) mL/min BUN/Creatinine Ratio 22.5 H (6-22) Glucose 91 (70-100) mg/dL Calcium 9.2 (8.4-10.2) mg/dL Magnesium 2.3 (1.6-2.3) mg/dL Total Bilirubin 0.6 (0.2-1.3) mg/dL AST 25 (17-59) IU/L ALT 22 (<50) IU/L Alkaline Phosphatase 58 (38-126) U/L Total Creatine Kinase 121 (55-170) U/L Troponin I < 0.012 (0.01-0.034) ng/mL Total Protein 7.6 (6.3-8.2) g/dL Albumin 4.3 (3.5-5.0) g/dL Globulin 3.3 (1.7-4.1) g/dL Albumin/Globulin Ratio 1.3 (1.0-2.8) Lipase 189 (23-300) U/L Chlamy pneumoniae PCR Not detected (Not Detect) Adenovirus (PCR) Not detected (Not Detect) B.parapertussis DNA PCR Not detected (Not Detecte) Coronavirus OC43 (PCR) Not detected (Not Detect) Coronavirus HKU1 (PCR) Not detected (Not Detect) Coronavirus 229E (PCR) Not detected (Not Detect) SARS-CoV-2 (PCR) Not detected (Not Detecte) Coronavirus NL63 (PCR) Not detected (Not Detect) Human Metapneumovir PCR Not detected (Not Detect) Influenza Type A (PCR) Not detected (Not Detect) Influenza Type B (PCR) Not detected (Not Detect) M. pneumoniae (PCR) Not detected (Not Detect) Parainfluenza 1 (PCR) Not detected (Not Detect) Parainfluenza 2 (PCR) Not detected (Not Detect) Parainfluenza 3 (PCR) Not detected (Not Detect) Parainfluenza 4 (PCR) Not detected (Not Detect) RSV (PCR) Not detected (Not Detect) Entero/Rhino (PCR) Not detected (Not Detect) Imaging Data Chest x-ray: Radiologist's Impression: [place] [address] XRay Report Signed Patient: Calos Benito MR#: [id number] : 1975 Acct:[id number] Age/Sex: 48 / M Date of Service: 06/09/23 Loc: ED Accession Number: [id number] Procedure: XR chest 2V Ordering Provider: Mio Anton MD PROCEDURE: XR CHEST 2V INDICATIONS: SOB TECHNIQUE: 2 views of the chest were acquired. COMPARISON: [facility] , CHEST 1 VIEW, 07/23/2016, 19:32. FINDINGS: Surgical changes and devices: None. Lungs and pleura: Lungs are clear. No pleural effusions or pneumothorax. Mediastinum: Mediastinal contours are normal. Heart size is normal. Bones and chest wall: No suspicious bony abnormalities. Soft tissues appear unremarkable. IMPRESSION: No acute pulmonary process. Dictated by: Carmen Rose M.D. on 06/09/2023 at 11:09 Approved by: Carmen Rose M.D. 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 Patient is had cough cold congestion for the past couple of weeks. He did recently travel to [place]. However he has become short of breath without chest pain. 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 Denies any medical problems/heart attack strokes diabetes CHF asthma pulmonary embolism. Sent over by walk-in clinic due to low oxygen saturation with ambulation. Patient states feels short of breath with exertion but no chest pain. He does have calf discomfort bilaterally however he was playing pickleball with his during vacation and they both have sore calves. After history and exam CBC CMP troponin EKG chest x-ray CT PE protocol normal saline respiratory panel, patient has low heart score [facility] Medical records reviewed: No recent visit for this complaint Differential considered: Includes but not limited to Lab Test results independently reviewed as above. Pertinent findings: WBC 8.9 hemoglobin 12 GFR greater than 60 troponin less than 0.012 respiratory panel negative Independently reviewed EKG normal sinus rhythm normal EKG rate [address] elevation or depression Imaging studies independently reviewed: Chest x-ray no acute finding, CT chest no PE, likely pneumonia right base Consultations: None indicated Treatments: Zithromax Augmentin Tessalon Perle normal saline Re-evaluations: 3:00 p.m.. Reviewed results with patient and . Patient in no distress. They do agree with treatment plan for treating community-acquired pneumonia. Symptoms started before they left for [place], likely not acquired while in [place]. Return precautions reviewed. Work note provided. Antibiotics have been started. They desire discharge home Discussion: Appropriate for discharge home. Exam is reassuring as well as laboratory studies and imaging. Antibiotics have been started. Patient not hypoxic at rest but does become dyspneic and decreased O2 sats with exertion. However appropriate for discharge home for trial of outpatient antibiotics with return precautions. They desire discharge home Diagnosis: Community-acquired pneumonia Discharge Plan Departure Patient Disposition: Home Clinical Impression: Community acquired pneumonia Qualifiers: Laterality: right Lung location: lower lobe of lung Qualified Code(s): J18.9 - Pneumonia, unspecified organism Instructions: DI for Pneumonia -- Adult Activity Restrictions/Additional Instructions: Your laboratory and imaging studies show likely pneumonia. Antibiotics have been started. Work note has been provided. Prescription antibiotics have been sent to your pharmacy to continue. Return if worse if any questions or concerns. Use inhaler 2 puffs every 4 hours as needed for cough or shortness of breath. See family doctor in a week for re-evaluation. Continue azithromycin/Zithromax tomorrow. You may continue the Augmentin tonight. Prescriptions: New benzonatate 100 mg capsule 100 mg PO TID PRN (Reason: cough) Qty: 21 0RF albuterol sulfate [Ventolin HFA] 90 mcg/actuation HFA aerosol inhaler 2 inhalation INHALATION QID PRN (Reason: shortness of breath or wheezing) Qty: 6.7 0RF amoxicillin-pot clavulanate 875-125 mg tablet 1 tab PO BID Qty: 14 0RF No Action omeprazole 20 mg capsule,delayed release(DR/EC) 20 mg PO DAILY Referrals: Nichole Anders MD [Primary Care Provider] - Stand Alone Forms: Patient Portal/API, Work Release Note
[2023-06-09 12:23] LABS: Troponin I < 0.012 ng/mL (0.01-0.034)
[2023-06-09] MEDS: SODIUM CHLORIDE 0.9% 500 ML 1000 ML IV (12:48)
[2023-06-09] MEDS: AZITHROMYCIN 250 MG TABLET 500 MG PO (14:55)
[2023-06-09] MEDS: BENZONATATE 100 MG CAPSULE PO (14:55)
[2023-06-09] MEDS: AMOXICILLIN/CLAV 875/125 MG 1 TAB PO (14:55)
== END 2023-06-09 14:58 | disposition home or self-care (01) ==
PROVIDERS: Student in an Organized Health Care Education/Training Program; Emergency Provider Emergency Medicine; Family Provider Student in an Organized Health Care Education/Training Program; PCP Student in an Organized Health Care Education/Training Program
DX: J18.9 Pneumonia, unspecified organism (principal)
CPT/HCPCS: 36415; 71046; 71275; 80053; 82550; 83690; 83735; 84484; 85025; 85610; 85730; 87633; 93005; 93010; 99284; 99285; A9270; Q9967

== ENCOUNTER → 2024-07-19 10:01 | Outpatient (CLI) | payer OTHER, SELFPAY ==
--- NOTE | 2024-07-19 10:05 | DI.RAD.S_ITS ---
PROCEDURE: XR ELBOW LT MIN 3V INDICATIONS: hit in elbow hard w/ canoe paddle yesterday TECHNIQUE: 3 views of the elbow were acquired. COMPARISON: Located [facility], CR, XR ELBOW LT MIN 3V, 11/26/2019, 13:48. FINDINGS: Bones: There are no fracture or other osseous abnormalities. Elbow joint: Normal in width and alignment without arthritic change. There are no effusions. Soft tissues: Moderate ossification of the triceps tendon insertion on the olecranon again noted. IMPRESSION: Moderate ossification of the triceps tendon insertion on the olecranon likely stigmata of old trauma or inflammation no change Dictated by: Arsh Tomlin M.D. on 07/19/2024 at 13:19 Approved by: Arsh Tomlin M.D. on 07/19/2024 at 13:20
== END ==
PROVIDERS: PCP Student in an Organized Health Care Education/Training Program; Referring Provider Student in an Organized Health Care Education/Training Program; Visit Provider Student in an Organized Health Care Education/Training Program
DX: S59.902A Unspecified injury of left elbow, initial encounter (principal); S50.02XA Contusion of left elbow, initial encounter; M67.824 Other specified disorders of tendon, left elbow
CPT/HCPCS: 73080

== ENCOUNTER → 2024-10-09 12:48 | Outpatient (CLI) | payer OTHER, SELFPAY ==
--- NOTE | 2024-10-09 12:50 | DI.RAD.S_ITS ---
PROCEDURE: XR SHOULDER LT MIN 2V INDICATIONS: shoulder injury, anterior TECHNIQUE: Three views of the shoulder were acquired. COMPARISON: None. FINDINGS: Bones: No acute fractures or dislocation. Acromioclavicular joint widening. No distal clavicle elevation. Mild spurring at the distal clavicle. Visible ribs are intact. Soft tissues: No suspicious soft tissue calcifications. IMPRESSION: AC joint widening, potentially chronic. Correlate with point tenderness.. Dictated by: Debora Benz M.D. on 10/09/2024 at 19:55 Approved by: Debora Benz M.D. on 10/09/2024 at 19:57
== END ==
PROVIDERS: PCP Student in an Organized Health Care Education/Training Program; Referring Provider Nurse Practitioner Family; Visit Provider Nurse Practitioner Family
DX: S46.912A Strain of unspecified muscle, fascia and tendon at shoulder and upper arm level, left arm, initial encounter (principal); X58.XXXA Exposure to other specified factors, initial encounter
CPT/HCPCS: 73030